=== PATIENT | female | born 1945 | race Caucasian/White ===

== ENCOUNTER → 2017-01-06 | Outpatient (CLI) | payer MEDICARE | END | disposition home or self-care (01) | LOC: LABWHC1 11:20 | PROVIDERS: ATTEND Internal Medicine Endocrinology, Diabetes & Metabolism | DX: E03.8 Other specified hypothyroidism (principal) | CPT/HCPCS: 36415; 84443 ==

== ENCOUNTER → 2017-05-12 | Outpatient (CLI) | payer MEDICARE ==
--- NOTE | 2017-05-13 07:45 | BD ---
EXAMINATION TYPE: MG DEXA axial skeleton. DATE OF EXAM: 05/12/2017 COMPARISON: 04/09/2007 prior DEXA bone scan report. CLINICAL HISTORY: Postmenopausal female Height: 60.7 IN Weight: 217 LBS FRAX RISK QUESTIONS: Alcohol (3 or more units per day): NO Family History (Parent hip fracture): NO Glucocorticoids (More than 3mos): NO (Ex: prednisone, prednisolone, methylprednisolone, dexamethasone, and hydrocortisone). History of Fracture in Adulthood: YES C2 10/2016 Secondary Osteoporosis: 1. Type 1 Diabetes: NO 2. Hyperthyroidism: NO 3. Menopause before 45: YES AGE 36 4. Malnutrition: NO 5. Chronic liver disease: NO Rheumatoid Arthritis: NO Current Tobacco Use: NO RISK FACTORS HISTORY OF: Spine Fracture: C2 When: 10/29 Surgery to Hip(KEN): When: RT 2011 AND LEFT 2015 Active: YES Postmenopausal woman: AGE 36 Lost more than 2 inches in height since high school: YES 5" MEDICATIONS: Thyroid Medications: YES Which medication: Levothyroxine How Lon+ YEARS Additional Medications: CALCIUM, VIT D, LEVOTHYROXINE, BLOOD PRESSURE MEDS, COUMADIN, NORCO Additional History: CHEMO WITH RADIATION 2007 EXAM MEASUREMENTS: Bone mineral densitometry was performed using the Carena System. Bone mineral density as measured about the Lumbar spine is: ----- L1-L4(G/cm2): 1.198 T Score Values are as follows: ----- L2: -1.3 ----- L3: 1.6 ----- L4: 1.0 ----- L1-L4: 0.2 Bone mineral density has: Increased 7.2% since study of: 04/09/2007 PT HAD BILATERAL HIP REPLACEMENTS. IMPRESSION: Osteopenia (T Score between -2.5 and -1 as noted by T score values as noted at 2 consecutive levels i n the upper lumbar spine. There is slightly increased risk of fracture and the patient may be conside red for treatment. Re-Screen 2-5 years. NOTE: T-SCORE=SD OF THE YOUNG ADULT MEAN.
--- NOTE | 2017-05-13 08:46 | MM ---
Reason for exam: additional evaluation requested from prior study. Last mammogram was performed 10 years and 1 month ago. History: Patient is postmenopausal and has history of breast cancer at age 61. Family history of breast cancer in cousin at age 30 and breast cancer in aunt at age 50. Lumpectomy of the right breast, May 25, 2007. Malignant US right core biopsy of the right breast, April 28, 2007. Took antineoplastic for 5 years beginning at age 62. Physical Findings: Nurse did not find any significant physical abnormalities on exam. MG 3D Diag Mammo W/Cad KEN Bilateral CC and MLO view(s) were taken. Prior study comparison: April 15, 2007, workup right diagnostic mammogram. April 09, 2007, bilateral screening mammogram w/CAD. There are scattered fibroglandular densities. Stable benign calcifications. Post lumpectomy and radiation therapy changed in the right breast. No significant new findings when compared with previous films. These results were verbally communicated with the patient and result sheet given to the patient on 05/12/17. ASSESSMENT: Benign, BI-RAD 2 RECOMMENDATION: Follow-up diagnostic mammogram of both breasts in 1 year.
== END | disposition home or self-care (01) ==
LOC: RADMAMWWP 13:36
PROVIDERS: ATTEND Family Medicine
DX: Z08 Encounter for follow-up examination after completed treatment for malignant neoplasm (principal); Z85.3 Personal history of malignant neoplasm of breast; M85.88 Other specified disorders of bone density and structure, other site; Z78.0 Asymptomatic menopausal state
CPT/HCPCS: 77080; G0204; G0279

== ENCOUNTER → 2018-01-02 | Outpatient (CLI) | payer MEDICARE ==
--- NOTE | 2018-01-03 23:22 | MR ---
EXAMINATION TYPE: MR lumbar spine wo con DATE OF EXAM: 01/02/2018 COMPARISON: 10/11/2014 HISTORY: Back pain / DDD TECHNIQUE: Multiplanar, multisequence images of the lumbar spine were acquired. There is 5 mm anterior subluxation of L4 in relation L5. There is narrowing of disc spaces throughout the lumbar spine. There is decreased signal in the L2 vertebral body and the superior posterior aspe ct of L3 vertebral body consistent with edema. There are posterior endplate spurring and small disc h erniation throughout the lumbar spine. There is developmentally adequate canal and no significant bon y spinal stenosis. There is no lumbar paraspinal mass. The posterior elements are intact. There is 5- 10% loss of height of L2 vertebra on the right side. I see no increased disc fluid. I see no evidence of discitis. IMPRESSION: Degenerative first-degree L4-5 spondylolisthesis. Multilevel spondylotic change. There is edema in th e L2 and L3 vertebral bodies that is new compared to old exam and consistent with subacute fractures at L2 and some reactive edema there is stress related in the L3 vertebra.. Multiple small posterior l umbar disc herniations. No significant spinal stenosis.
== END | disposition home or self-care (01) ==
LOC: RADMRIMAIN 10:31
PROVIDERS: ATTEND Family Medicine
DX: M51.26 Other intervertebral disc displacement, lumbar region (principal); M43.16 Spondylolisthesis, lumbar region; M47.816 Spondylosis without myelopathy or radiculopathy, lumbar region
CPT/HCPCS: 72148

== ENCOUNTER → 2018-03-05 | Outpatient (CLI) | payer MEDICARE ==
--- NOTE | 2018-03-05 14:13 | CT ---
EXAMINATION TYPE: CT angio chest DATE OF EXAM: 03/05/2018 COMPARISON: NONE HISTORY: Thoracic aortic aneurysm CT DLP: 572 mGycm. Automated Exposure Control for Dose Reduction was Utilized. CONTRAST: CTA scan of the thorax is performed with IV Contrast, patient injected with 100 mL of Isovue 370, pul monary embolism protocol. Three-D reconstructed images are created on independent workstation and rev iewed.. FINDINGS: Vascular: There is satisfactory enhancement of the pulmonary artery and its branches, there is no CT evidence for acute pulmonary embolism. Ascending aorta measures up to 3.5 cm diameter axial image 24 at level of bifurcation. Inferior to th is there is obliquity present making accurate measurements suboptimal. There is normal three-vessel o rigin from the aortic arch. No significant stenosis is present. There is some tortuous course to visu alized portion of both common carotid arteries. There is mild to moderate mixed plaque in the descend ing thoracic aorta which is slightly ectatic in course. There is patency of celiac axis, SMA, bilater al single renal arteries. There is ectasia with moderate mixed plaque in the infrarenal abdominal aor ta measuring up to 2.5 cm AP diameter axial image 67. No significant stenosis is evident. No linear h ypodensity to suggest aortic dissection is present. LUNGS: The lungs are grossly clear, there is no concerning parenchymal mass or nodule identified. T here is no pleural effusion or pneumothorax seen. The tracheobronchial tree is patent. MEDIASTINUM: There are no greater than 1 cm hilar or mediastinal lymph nodes. No pericardial effusi on is seen. There is cardiomegaly with moderate to severe biatrial dilatation and mild biventricular dilatation. There is severe three-vessel coronary artery calcification and/or stents. OTHER: Cholecystectomy clips are noted. There is some fat replaced atrophy of the pancreas proximal t o mid body. There is moderate to severe multilevel spurring in the visualized spine. There is multile mony vacuum disc phenomenon and disc space narrowing in the visualized lumbar spine. There are surgica l changes from lumpectomy in the right breast. Skin thickening is presumed posttreatment change. IMPRESSION: Ascending aorta measures up to 3.5 cm in diameter. Ectasia of the infrarenal abdominal ao rta without greater than 3 cm aneurysmal change is also noted.
== END | disposition home or self-care (01) ==
LOC: RADCTMAIN 12:59
PROVIDERS: ATTEND Internal Medicine Clinical Cardiac Electrophysiology
DX: I77.811 Abdominal aortic ectasia (principal)
CPT/HCPCS: 71275; Q9967

== ENCOUNTER → 2018-03-05 | Outpatient (CLI) | payer MEDICARE ==
--- NOTE | 2018-03-05 13:14 | MR ---
EXAMINATION TYPE: MR lumbar spine wo/w con DATE OF EXAM: 03/05/2018 12:38 PM COMPARISON: 10/11/2014 HISTORY: Spondylosis With Myelopathy CONTRAST: The patient was injected with 10 mL intravenous Gadavist gadolinium contrast. Multiplanar, MultiSpin echo imaging of the lumbar spine was performed. L1-L2: Severe degenerative disc desiccation with vacuum disc. Moderate circumferential disc bulge wit h effacement ventral thecal sac. No evidence for herniation or central stenosis. Facet joint arthropa thy with mild bilateral foraminal encroachment. L2-L3: Severe degenerative disc desiccation with vacuum disc. Moderate circumferential disc bulge wit h effacement ventral thecal sac. There is evidence of bilateral lateral recess stenosis and mild cent ral stenosis. Facet joint arthropathy with moderate bilateral foraminal encroachment. Facet joint art hropathy with mild bilateral foraminal encroachment. L3-L4: Severe degenerative disc desiccation with vacuum disc. Moderate circumferential disc bulge wit h effacement ventral thecal sac. There is evidence of bilateral lateral recess stenosis and mild cent ral stenosis. Facet joint arthropathy with moderate bilateral foraminal encroachment. Facet joint art hropathy with mild bilateral foraminal encroachment. L4-L5: Severe degenerative disc desiccation with vacuum disc. Moderate circumferential disc bulge wit h effacement ventral thecal sac. Grade 1 anterolisthesis L4 and L5 measuring 5.5 mm. No evidence for central stenosis. Facet joint arthropathy with moderate bilateral foraminal encroachment. Facet joint arthropathy with mild bilateral foraminal encroachment. L5-S1: Severe degenerative disc desiccation with vacuum disc. Mild posterior disc bulge noted. Facet joint arthropathy with moderate bilateral foraminal encroachment. Facet joint arthropathy with mild b ilateral foraminal encroachment. Lumbar segments are intact. Multilevel degenerative endplate marrow change. No paraspinal masses are identified. Conus medullaris has a normal appearance. IMPRESSION: 1. Severe multilevel degenerative disc disease with associated disc bulging and central stenosis at L 2-3 and L3-4 as discussed above.
== END ==
LOC: RADMRIMAIN 11:05
DX: M48.061 Spinal stenosis, lumbar region without neurogenic claudication (principal); M51.37 Other intervertebral disc degeneration, lumbosacral region; M51.26 Other intervertebral disc displacement, lumbar region; M99.73 Connective tissue and disc stenosis of intervertebral foramina of lumbar region; M46.96 Unspecified inflammatory spondylopathy, lumbar region
CPT/HCPCS: 82565; 84520; 72158; A9581

== ENCOUNTER → 2018-05-28 | Outpatient (CLI) | payer MEDICARE ==
--- NOTE | 2018-05-28 14:44 | MM ---
Reason for exam: additional evaluation requested from prior study. Last mammogram was performed 1 year and 1 month ago. History: Patient is postmenopausal and has history of breast cancer at age 61. Family history of breast cancer in cousin at age 30 and breast cancer in aunt at age 50. Lumpectomy of the right breast, May 25, 2007. Malignant US right core biopsy of the right breast, April 28, 2007. Took antineoplastic for 5 years beginning at age 62. Physical Findings: Nurse did not find any significant physical abnormalities on exam. MG 3D Diag Mammo W/Cad KEN Bilateral CC and MLO view(s) were taken. Prior study comparison: May 12, 2017, bilateral MG 3d diag mammo w/cad KEN. April 15, 2007, workup right diagnostic mammogram. There are scattered fibroglandular densities. Finding: There are increased number of heterogeneous, grouped/clustered calcifications in the lower inner quadrant, anterior position of the left breast 9cm from the nipple. Asymmetric breast tissue greaster in the right breast. These results were verbally communicated with the patient and result sheet given to the patient on 05/28/18. ASSESSMENT: Probably benign, BI-RAD 3 RECOMMENDATION: Follow-up diagnostic mammogram of the left breast in 6 months.
== END | disposition home or self-care (01) ==
LOC: RADMAMWWP 13:17
PROVIDERS: ATTEND Family Medicine
DX: Z08 Encounter for follow-up examination after completed treatment for malignant neoplasm (principal); Z85.3 Personal history of malignant neoplasm of breast
CPT/HCPCS: 77066; G0279; 77062

== ENCOUNTER 2018-11-03 16:32 | Inpatient (IN) | payer MEDICARE ==
[2018-11-03] MEDS ORDERED: SODIUM CHLORIDE 0.9% 500 ML 500 ML IV STA (16:57)
[2018-11-03] MEDS ORDERED: ONDANSETRON 4 MG/2 ML VIAL IVP STA (16:57)
[2018-11-03] MEDS ORDERED: SODIUM CHLORIDE 0.9% 1,000 ML IV STA (16:57)
--- NOTE | 2018-11-03 17:01 | ED ---
Chest Pain HPI - General Chief Complaint: Chest Pain Stated Complaint: Chest pain, upper jaw pain Time Seen by Provider: 11/03/18 16:52 Source: patient, RN notes reviewed, old records reviewed Mode of arrival: wheelchair Limitations: no limitations - History of Present Illness Initial Comments: This is a 72-year-old female the ER for evaluation she presents today for evaluation of chest pain and arrhythmia. Patient is current site monitor placed to monitor for arrhythmia A. fib. Patient states she's had chest pain throughout the night with shortness of breath. No diaphoresis no travel history no sick contacts no fever cough or congestion. She has no prior history of cardiac injury [place] or stent Complaint: chest pain -: hour(s) Onset: during rest, during exertion Pain Location: left chest Pain Radiation: back, jaw/teeth Severity: moderate Severity scale (1-10): 5 Quality: aching, heaviness Consistency: constant, intermittent Improves With: nothing Worsens With: nothing Other Symptoms: palpitations Treatments Prior to Arrival: none - Related Data Home Medications Medication Instructions Recorded Confirmed Aspirin EC [Ecotrin] 81 mg PO DAILY 09/18/14 11/03/18 Pravastatin Sodium [Pravachol] 40 mg PO HS 09/18/14 11/03/18 HYDROcodone/APAP 10-325MG [Catherine 1 tab PO TID 11/10/14 11/03/18 10] Hydrochlorothiazide [Hydrodiuril] 25 mg PO DAILY 11/03/18 11/03/18 Levothyroxine Sodium [Synthroid] 137 mcg PO HS 11/03/18 11/03/18 Metoprolol Tartrate [Lopressor] 50 mg PO DAILY 11/03/18 11/03/18 Telmisartan [Micardis] 80 mg PO DAILY 11/03/18 11/03/18 Warfarin [Coumadin] 5 mg PO SUTUWEFRSA 11/03/18 11/03/18 Warfarin [Coumadin] 7.5 mg PO MOTH 11/03/18 11/03/18 Allergies Allergy/AdvReac Type Severity Reaction Status Date / Time meperidine HCl [From Demerol] AdvReac Unknown Blood Verified 11/03/18 18:30 pressure dropped Review of Systems ROS Statement: Those systems with pertinent positive or pertinent negative responses have been documented in the HPI. ROS Other: All systems not noted in ROS Statement are negative. EKG Findings - EKG Comments: EKG Findings:: EKG shows A. fib rate of 75, QRS 84, QTC 419 Past Medical History Past Medical History: Atrial Fibrillation, Cancer, GERD/Reflux, Hyperlipidemia, Hypertension, Osteoarthritis (OA), Thyroid Disorder Additional Past Medical History / Comment(s): HX OF RT BREAST CANCER WITH RADIATION 2007., BACK AND HIP PAIN. History of Any Multi-Drug Resistant Organisms: MRSA Date of last positivie culture/infection: 1997 MDRO Source:: RT BUNIONECTOMY Past Surgical History: Back Surgery, Cholecystectomy, Joint Replacement Additional Past Surgical History / Comment(s): 2002 CERVICAL FUSION, LT CARPAL TUNNEL, RT HIP REPLACEMENT, KEN KNEE REPLACEMENT, KEN BUNIONECTOMY, 2006 RT BREAST LUMPECTOMY. Past Anesthesia/Blood Transfusion Reactions: No Reported Reaction Past Psychological History: No Psychological Hx Reported Smoking Status: Never smoker General Exam Limitations: no limitations General appearance: alert, in no apparent distress, anxious Head exam: Present: atraumatic, normocephalic, normal inspection Eye exam: Present: normal appearance, PERRL, EOMI. Absent: scleral icterus, conjunctival injection, periorbital swelling ENT exam: Present: normal exam, mucous membranes moist Neck exam: Present: normal inspection. Absent: tenderness, meningismus, lymphadenopathy Respiratory exam: Present: normal lung sounds bilaterally. Absent: respiratory distress, wheezes, rales, rhonchi, stridor Cardiovascular Exam: Present: regular rate, normal rhythm, normal heart sounds. Absent: systolic murmur, diastolic murmur, rubs, gallop, clicks GI/Abdominal exam: Present: soft, normal bowel sounds. Absent: distended, tenderness, guarding, rebound, rigid Extremities exam: Present: normal inspection, full ROM, normal capillary refill. Absent: tenderness, pedal edema, joint swelling, calf tenderness Back exam: Present: normal inspection Neurological exam: Present: alert, oriented X3, CN II-XII intact Psychiatric exam: Present: normal affect, normal mood Skin exam: Present: warm, dry, intact, normal color. Absent: rash Course Vital Signs 11/03/18 11/03/18 11/03/18 16:41 17:29 17:30 Temperature 98.1 F Pulse Rate 87 72 76 Respiratory 16 16 Rate Blood Pressure 109/73 O2 Sat by Pulse 97 Oximetry 11/03/18 11/03/18 18:00 18:30 Temperature Pulse Rate 87 Respiratory 19 Rate Blood Pressure 122/80 O2 Sat by Pulse 100 Oximetry - Reevaluation(s) Reevaluation #1: 11/03/18 18:48 Medical record reviewed, patient has current site monitor Reevaluation #2: 11/03/18 18:48 Patient states she has history of A. fib on Coumadin Reevaluation #3: 11/03/18 18:48 Patient continues to chest pain Chest Pain MDM - MDM 72 female the ER for evaluation, chest pain and arrhythmia. Will not for cardiology observation rehydration and continue monitoring and telemetry Disposition Clinical Impression: Chest pain, Atrial fibrillation, Hyponatremia Disposition: ADMITTED IP TO THIS HOSP Condition: Undetermined Instructions (If sedation given, give patient instructions): Chest Pain (ED) Is patient prescribed a controlled substance at d/c from ED?: No Referrals: Je Santana MD [Primary Care Provider] - 1-2 days
[2018-11-03 18:09] LABS: Basophils % (A) 0 %; Eosinophils # (A) 0.1 k/uL (0-0.7); Eosinophils % (A) 1 %; HCT 40.9 % (34.0-46.0); HGB 13.3 gm/dL (11.4-16.0); Lymphocytes # (A) 0.6 k/uL (1.0-4.8); Lymphocytes % (A) 6 %; MCH 29.2 pg (25.0-35.0); MCHC 32.6 g/dL (31.0-37.0); MCV 89.7 fL (80.0-100.0); Mean Platelet Volume 6.9; Monocytes # (A) 0.5 k/uL (0-1.0); Monocytes % (A) 4 %; Neutrophils # (A) 8.8 k/uL (1.3-7.7); Neutrophils % (A) 87 %; Platelet Count 219 k/uL (150-450); RBC 4.56 m/uL (3.80-5.40); RDW 13.5 % (11.5-15.5); WBC 10.1 k/uL (3.8-10.6)
[2018-11-03 18:13] LABS: Albumin 4.2 g/dL (3.5-5.0); Calcium 9.9 mg/dL (8.4-10.2); Magnesium 1.4 mg/dL (1.6-2.3); Potassium 3.9 mmol/L (3.5-5.1); Total Protein 6.9 g/dL (6.3-8.2)
[2018-11-03 18:21] LABS: D-Dimer 0.45 mg/L FEU (<0.60); INR 2.3 (<1.2)
[2018-11-03 18:22] LABS: Partial Thromboplastin Time 27.7 sec (22.0-30.0)
[2018-11-03] MEDS ORDERED: ACETAMINOPHEN TAB 325 MG TAB PO STA (18:29)
--- NOTE | 2018-11-03 18:32 | XR ---
EXAMINATION TYPE: XR chest 2V DATE OF EXAM: 11/03/2018 COMPARISON: 09/15/2014 HISTORY: Chest pain TECHNIQUE: Frontal and lateral views of the chest are obtained. FINDINGS: There is no heart failure nor confluent pneumonic infiltrate. There is coarsening of the l bob markings. There are chest leads. Thoracic aorta is atheromatous. IMPRESSION: Mild pulmonary fibrosis. No heart failure. Lung markings increased compared to old exam.
[2018-11-03] MEDS ORDERED: NITROGLYCERIN SL TABS 0.4 MG TAB SUBLINGUAL PRN (18:46)
[2018-11-03] MEDS: SODIUM CHLORIDE 0.9% 1,000 ML IV SCH (19:45)
[2018-11-03] MEDS ORDERED: METOPROLOL TARTRATE 25 MG TAB PO SCH (21:00)
[2018-11-03 22:53] VITALS: BMI 37.8
[2018-11-03] MEDS ORDERED: Magnesium Replacement Protocol 1 EACH MISC MISCELLANE PRN (23:02)
[2018-11-03] MEDS: HYDROcodone/APAP 10-325MG 1 EACH TAB PO SCH (23:29)
[2018-11-03] MEDS: MAGNESIUM SULFATE-D5W PMX 1 GM in DEXTROSE/WATER 1 100ML.BAG IVPB SCH (23:30)
[2018-11-03] MEDS ORDERED: WARFARIN 5 MG TAB PO ONE (23:30)
[2018-11-03] MEDS: LOSARTAN 50 MG TAB PO SCH (23:30)
[2018-11-04] MEDS: MAGNESIUM SULFATE-D5W PMX 1 GM in DEXTROSE/WATER 1 100ML.BAG IVPB SCH ×2 (00:48→02:27)
[2018-11-04] MEDS: MORPHINE SULFATE 2 MG/ML SYRINGE IVP PRN ×3 (02:26→22:38)
[2018-11-04 06:04] LABS: Basophils % (A) 0 %; Eosinophils # (A) 0.1 k/uL (0-0.7); Eosinophils % (A) 1 %; HCT 37.7 % (34.0-46.0); HGB 12.5 gm/dL (11.4-16.0); Lymphocytes % (A) 14 %; MCH 29.8 pg (25.0-35.0); MCHC 33.1 g/dL (31.0-37.0); MCV 89.8 fL (80.0-100.0); Monocytes # (A) 0.6 k/uL (0-1.0); Monocytes % (A) 9 %; Neutrophils % (A) 74 %; Platelet Count 213 k/uL (150-450); RDW 13.4 % (11.5-15.5); WBC 6.8 k/uL (3.8-10.6)
[2018-11-04 06:13] LABS: Albumin 3.6 g/dL (3.5-5.0); Calcium 9.3 mg/dL (8.4-10.2); Magnesium 2.4 mg/dL (1.6-2.3); Total Bilirubin 1.6 mg/dL (0.2-1.3); Total Protein 6.1 g/dL (6.3-8.2)
[2018-11-04] MEDS: SODIUM CHLORIDE 0.9% 1,000 ML IV SCH (06:19)
[2018-11-04 07:16] LABS: INR 1.7 (<1.2); Prothrombin Time 16.8 sec (9.0-12.0)
[2018-11-04] MEDS ORDERED: CAFFEINE CITRATE 60 MG/3 ML VIAL IV PRN (08:18)
[2018-11-04] MEDS ORDERED: AMINOPHYLLINE 500 MG/20 ML VIAL IV PRN (08:18)
--- NOTE | 2018-11-04 08:21 | P.CRDCN ---
History of Present Illness Consult date: 11/04/18 Requesting physician: Octavio Nieves Consult reason: chest pain Chief complaint: Chest pain History of present illness: This is a pleasant 72-year-old female who follows with Dr. Calin beatty the office, she has a known history of persistent atrial fibrillation, hypertension, hyperlipidemia, nondiabetic, nonsmoker, no documented coronary artery disease in the past, history of hypothyroidism. 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 She walked out to her car put her groceries in the car, called the physician's office and was directed to come here for admission. Has not had any prior cardiac catheterization but she does state that she had a stress test several years ago. She also has significant issues with her neck and spine for which she has had cervical fusion performed in the past. Chest x-ray showed mild pulmonary fibrosis. EKG on presentation here showed atrial fibrillation with a controlled ventricular response. No acute changes noted. I pressure on arrival here 110/70 with a heart rate in the 80s, 97% on room air. Weight blood cell count 6.8, hemoglobin 12.5, platelet count 213. Pro time on admission 22 with an INR of 2.3, INR this morning 1.7, d-dimer 0.45. Sodium 123, potassium 4.0, BUN 19 and creatinine 0.8. NEC and 1.4 on admission, 2.4 this morning. Troponins are negative 3. Total bilirubin 1.6, BNP level 1710. At the time of my examination this morning, patient continues to have chest discomfort, significantly worse when she takes a deep breath. Her breathing is overall stable, denies any diaphoresis, no dizziness or lightheadedness. Past Medical History Past Medical History: Atrial Fibrillation, Cancer, GERD/Reflux, Hyperlipidemia, Hypertension, Osteoarthritis (OA), Thyroid Disorder Additional Past Medical History / Comment(s): HX OF RT BREAST CANCER WITH RADIATION 2007., BACK AND HIP PAIN. History of Any Multi-Drug Resistant Organisms: MRSA Date of last positivie culture/infection: 1997 MDRO Source:: RT BUNIONECTOMY Past Surgical History: Back Surgery, Cholecystectomy, Joint Replacement Additional Past Surgical History / Comment(s): 2002 CERVICAL FUSION, LT CARPAL TUNNEL, RT HIP REPLACEMENT, KEN KNEE REPLACEMENT, KEN BUNIONECTOMY, 2006 RT BREAST LUMPECTOMY. Past Anesthesia/Blood Transfusion Reactions: No Reported Reaction Past Psychological History: No Psychological Hx Reported Smoking Status: Never smoker - Past Family History Mother Family Medical History: Hyperlipidemia, Hypertension, Myocardial Infarction ([place]) Father Additional Family Medical History / Comment(s): aneruysm Medications and Allergies Home Medications Medication Instructions Recorded Confirmed Type Aspirin EC [Ecotrin] 81 mg PO DAILY 09/18/14 11/03/18 History Pravastatin Sodium [Pravachol] 40 mg PO HS 09/18/14 11/03/18 History HYDROcodone/APAP 10-325MG [[place] 1 tab PO TID 11/10/14 11/03/18 History 10] Hydrochlorothiazide [Hydrodiuril] 25 mg PO DAILY 11/03/18 11/03/18 History Levothyroxine Sodium [Synthroid] 137 mcg PO HS 11/03/18 11/03/18 History Metoprolol Tartrate [Lopressor] 50 mg PO DAILY 11/03/18 11/03/18 History Telmisartan [Micardis] 80 mg PO DAILY 11/03/18 11/03/18 History Warfarin [Coumadin] 5 mg PO SUTUWEFRSA 11/03/18 11/03/18 History Warfarin [Coumadin] 7.5 mg PO MOTH 11/03/18 11/03/18 History Allergies Allergy/AdvReac Type Severity Reaction Status Date / Time meperidine HCl [From Demerol] AdvReac Unknown Blood Verified 11/03/18 18:30 pressure dropped Physical Exam Vitals: Vital Signs Temp Pulse Pulse Resp BP BP Pulse Ox 11/04/18 04:58 97.7 F 87 18 102/70 97 11/03/18 22:45 97.9 F 86 18 149/79 98 11/03/18 22:42 97.8 F 86 16 149/79 98 11/03/18 21:30 98.7 F 87 19 126/84 96 11/03/18 21:00 89 23 124/83 96 11/03/18 20:30 83 21 125/84 96 11/03/18 20:00 82 17 162/86 97 05/22/19 19:30 87 19 122/105 98 11/03/18 19:00 80 14 125/93 11/03/18 18:30 87 19 11/03/18 18:00 122/80 100 11/03/18 17:30 76 16 11/03/18 17:29 72 11/03/18 16:41 98.1 F 87 16 109/73 97 Intake and Output 11/03/18 11/04/18 11/04/18 22:59 06:59 14:59 Intake Total 300 Balance 300 Intake: Intake, IV Titration 300 Amount Magnesium Sulfate-D5w Pmx 300 1 gm In Dextrose/Water 1 100ml.bag @ 100 mls/hr IVPB Q1H [facility] Rx#: [id number] Other: Voiding Method Toilet # Voids 1 Weight 90.718 kg 87.7 kg PHYSICAL EXAMINATION: GENERAL: 72-year-old female in no acute distress at the time of my examination HEENT: Head is atraumatic, normocephalic. Pupils equal, round. Sclera anicteric. Conjunctiva are clear. Mucous membranes of the mouth are moist. Neck is supple. There is no elevated jugular venous pressure. No carotid bruit is heard. HEART EXAMINATION: Heart S1 and S2 irregularly irregular a systolic murmur is heard CHEST EXAMINATION: Lungs are clear with fine crackles to bilateral bases. Positive chest wall pain with inspiration ABDOMEN: [ Soft, obese, nontender. Bowel sounds are heard. No organomegaly noted]. EXTREMITIES:[ 2+ peripheral pulses with trace evidence of peripheral edema and no calf tenderness noted]. NEUROLOGIC [patient is awake, alert and oriented 3 ] . Results 11/04/18 05:24 11/04/18 05:24 Cardiac Enzymes 11/03/18 11/03/18 11/03/18 Range/Units 17:35 17:35 23:19 AST 32 (14-36) U/L Troponin I <0.012 <0.012 (0.000-0.034) ng/mL 11/04/18 11/04/18 Range/Units 05:24 05:24 AST 29 (14-36) U/L Troponin I <0.012 (0.000-0.034) ng/mL Coagulation 11/03/18 11/04/18 Range/Units 17:35 05:24 PT 22.0 H 16.8 H (9.0-12.0) sec APTT 27.7 (22.0-30.0) sec Lipids 11/04/18 Range/Units 05:24 Triglycerides 64 (<150) mg/dL Cholesterol 130 (<200) mg/dL HDL Cholesterol 49 (40-60) mg/dL CBC 11/03/18 11/04/18 Range/Units 17:35 05:24 WBC 10.1 6.8 (3.8-10.6) k/uL RBC 4.56 4.20 (3.80-5.40) m/uL Hgb 13.3 12.5 (11.4-16.0) gm/dL Hct 40.9 37.7 (34.0-46.0) % Plt Count 219 213 (150-450) k/uL Comprehensive Metabolic Panel 11/03/18 11/04/18 Range/Units 17:35 05:24 Sodium 125 L 123 L (137-145) mmol/L Potassium 3.9 4.0 (3.5-5.1) mmol/L Chloride 90 L 89 L (98-107) mmol/L Carbon Dioxide 26 26 (22-30) mmol/L BUN 20 H 19 H (7-17) mg/dL Creatinine 0.85 0.86 (0.52-1.04) mg/dL Glucose 104 H 95 (74-99) mg/dL Calcium 9.9 9.3 (8.4-10.2) mg/dL AST 32 29 (14-36) U/L ALT 25 23 (9-52) U/L Alkaline Phosphatase 68 56 (38-126) U/L Total Protein 6.9 6.1 L (6.3-8.2) g/dL Albumin 4.2 3.6 (3.5-5.0) g/dL Current Medications Generic Name Dose Route Start Last Admin Trade Name Freq PRN Reason Stop Dose Admin Hydrocodone Bitart/Acetaminophen 1 each 11/03/18 23:30 11/03/18 23:29 [place] 10 PO 1 each TID LIBBY Administration Aspirin 325 mg 11/04/18 09:00 Aspirin PO DAILY LIBBY Famotidine 20 mg 11/04/18 09:00 Pepcid PO DAILY LIBBY Sodium Chloride 1,000 mls @ 100 mls/hr 11/03/18 19:00 11/04/18 06:19 Saline 0.9% IV 100 mls/hr .Q10H LIBBY Administration Levothyroxine Sodium 137 mcg 11/04/18 21:00 Synthroid PO HS [facility] Losartan Potassium 150 mg 11/03/18 23:30 11/03/18 23:30 Cozaar PO 150 mg DAILY LIBBY Administration Metoprolol Tartrate 50 mg 11/04/18 09:00 Lopressor PO DAILY [facility] Miscellaneous Information 1 each 11/03/18 23:02 Magnesium Per Protocol MISCELLANE DAILY PRN Per Protocol Protocol Morphine Sulfate 1 - 2 mg 11/03/18 23:02 11/04/18 02:26 Morphine Sulfate (Inj) IVP 1 mg Q4H PRN Administration Pain/Discomfort Nitroglycerin 0.4 mg 11/03/18 18:46 11/03/18 22:30 Nitrostat SUBLINGUAL 0.4 mg Q5M PRN Administration Chest Pain Pravastatin Sodium 40 mg 11/04/18 21:00 Pravachol PO HS [facility] Warfarin Sodium 5 mg 11/05/18 18:00 Coumadin PO [id number] [facility] Warfarin Sodium 7.5 mg 11/04/18 18:00 Coumadin PO [id number]@1800 [facility] Intake and Output 11/03/18 11/04/18 11/04/18 22:59 06:59 14:59 Intake Total 300 Balance 300 Intake: Intake, IV Titration 300 Amount Magnesium Sulfate-D5w Pmx 300 1 gm In Dextrose/Water 1 100ml.bag @ 100 mls/hr IVPB Q1H [facility] Rx#: [id number] Other: Voiding Method Toilet # Voids 1 Weight 90.718 kg 87.7 kg 11/04/18 05:24 11/04/18 05:24 EKG Interpretations (text) EKG shows atrial fibrillation with a controlled ventricular response Assessment and Plan Plan: Assessment and plan #1 chest pain, with atypical features for acute coronary syndrome. Troponins negative 3. EKG shows atrial fibrillation with no acute changes. #2 chronic persistent atrial fibrillation, on Coumadin for anticoagulation #3 hypertension #4 hyperlipidemia #5 hypomagnesemia, replaced #6 hyponatremia #7 elevated BNP level with no evidence of acute heart failure #8 cervical and spine issues for which the patient has undergone a cervical fusion in the past #9 hypothyroidism Plan We will obtain an echocardiogram with Doppler study. Would also recommend patient undergo Persantine stress test today. Decrease aspirin to 81 mg daily, patient has no prior documented history of coronary artery disease, her stress test is normal we may discontinue the aspirin. Continue Cozaar, metoprolol, pravastatin. Further recommendations will be based on these findings and the patient's clinical course. DNP note has been reviewed, I agree with a documented findings and plan of care. Patient was seen and examined.
[2018-11-04] MEDS ORDERED: DIPYRIDAMOLE 50 MG in SODIUM CHLORIDE 0.9% 40 ML IV ONE (08:30)
[2018-11-04] MEDS ORDERED: HYDROcodone/APAP 10-325MG 1 EACH TAB PO SCH (09:00)
[2018-11-04] MEDS ORDERED: LOSARTAN 50 MG TAB PO SCH (09:00)
[2018-11-04] MEDS ORDERED: NON-FORMULARY DRUG (Aspirin Ec 81 MG) PO SCH (09:00)
[2018-11-04] MEDS ORDERED: RX INFO: IV CONTRAST WAS GIVEN 1 EACH MISC MISCELLANE PRN (10:31)
--- NOTE | 2018-11-04 10:31 | P.HPIM ---
History of Present Illness H&P Date: 11/03/18 Chief Complaint: Pain, severe hypoxia, severe hyponatremia, history of breast cancer, A. fib 72-year-old female one of Dr. 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 fib seen Dr. Lara on regular basis has been on warfarin and beta liban and doing well. Patient was at a civil engineering intern office today and place on conveyor monitor for 24 hours. Went to the shopping center and a blood to have significant tightness and pressure in the midsternal area radiating toward both shoulder and jaw was associated with significant shortness of breath mild palpitation mild lightheadedness without syncope had nausea with no vomiting patient symptom or much worse ended up coming back to the civil engineering intern office and complain about a current problem was instructed to go to the [facility]. She was seen and evaluated at [facility] emergency EKG did not show major tachycardia the time still in A. fib no ST elevation or abnormality, CK with troponin was negative with her current symptoms patient will be hospitalized for atypical angina. Her d-dimer was negative no CTA was done at the time but patient was very hypoxic in the ER also was very hyponatremic with hypomagnesemia as well. Was started on fluid restriction and magnesium replacement therapy and hospitalized. Review of Systems CONSTITUTIONAL: Well-developed no acute respiratory distress. EYES: No icterus sclerae, no conjunctivitis. EARS, NOSE, MOUTH, THROAT, and FACE: No sore throat, lymphadenopathy, carotid bruits or deformity. RESPIRATORY: Mild shortness of breath no cough or wheezes. CARDIOVASCULAR: Positive chest pain with palpitation PND orthopnea, and angina GASTROINTESTINAL: No Abd pain, Nausea or vomiting, no Diarrhea or constipation, No GI Bleed, no distention or masses. GENITOURINARY: Negative for Hematuria or UTI, no kidney stones. INTEGUMENT/BREAST: Negative for any muscular injury with mild osteoarthritis.. HEMATOLOGIC/LYMPHATIC: Negative for bleed or purpura. MUSCULOSKELTAL: Negative for Myalgia or arthralgia. NEURLOGICAL: No LOC, Sz or syncope, blurred vision dizziness or abnormality.. BEHAVIORAL/PSYCH: Negative. ENDOCRINE: Negative. Past Medical History Past Medical History: Atrial Fibrillation, Cancer, GERD/Reflux, Hyperlipidemia, Hypertension, Osteoarthritis (OA), Thyroid Disorder Additional Past Medical History / Comment(s): HX OF RT BREAST CANCER WITH RADIATION 2007., BACK AND HIP PAIN. History of Any Multi-Drug Resistant Organisms: MRSA Date of last positivie culture/infection: 1997 MDRO Source:: RT BUNIONECTOMY Past Surgical History: Back Surgery, Cholecystectomy, Joint Replacement Additional Past Surgical History / Comment(s): 2002 CERVICAL FUSION, LT CARPAL TUNNEL, RT HIP REPLACEMENT, KEN KNEE REPLACEMENT, KEN BUNIONECTOMY, 2006 RT BREAST LUMPECTOMY. Past Anesthesia/Blood Transfusion Reactions: No Reported Reaction Past Psychological History: No Psychological Hx Reported Smoking Status: Never smoker Additional Past Alcohol Use History / Comment(s): No illicit drug use. No alcohol abuse. Patient lives at home with her . Patieant worked in alf setting. - Past Family History Mother Family Medical History: Hyperlipidemia, Hypertension, Myocardial Infarction ([place]) Additional Family Medical History / Comment(s): Mother at age 59 from a myocardial infarction. Patient had history of 2 previous MIs. Father Additional Family Medical History / Comment(s): Father at age 76 from a ruptured aortic aneurysm. Sister(s) Additional Family Medical History / Comment(s): Patient has one sister with atrial fibrillation. Children have no major medical problems. Medications and Allergies Home Medications Medication Instructions Recorded Confirmed Type Aspirin EC [Ecotrin] 81 mg PO DAILY 09/18/14 11/03/18 History Pravastatin Sodium [Pravachol] 40 mg PO HS 09/18/14 11/03/18 History HYDROcodone/APAP 10-325MG [[place] 1 tab PO TID 11/10/14 11/03/18 History 10] Hydrochlorothiazide [Hydrodiuril] 25 mg PO DAILY 11/03/18 11/03/18 History Levothyroxine Sodium [Synthroid] 137 mcg PO HS 11/03/18 11/03/18 History Metoprolol Tartrate [Lopressor] 50 mg PO DAILY 11/03/18 11/03/18 History Telmisartan [Micardis] 80 mg PO DAILY 11/03/18 11/03/18 History Warfarin [Coumadin] 5 mg PO SUTUWEFRSA 11/03/18 11/03/18 History Warfarin [Coumadin] 7.5 mg PO MOTH 11/03/18 11/03/18 History Allergies Allergy/AdvReac Type Severity Reaction Status Date / Time meperidine HCl [From Demerol] AdvReac Unknown Blood Verified 11/03/18 18:30 pressure dropped Physical Exam Vitals: Vital Signs Temp Pulse Resp BP Pulse Ox 11/03/18 21:30 98.7 F 87 19 126/84 96 11/03/18 21:00 89 23 124/83 96 11/03/18 20:30 83 21 125/84 96 11/03/18 20:00 82 17 162/86 97 11/03/18 19:30 87 19 122/105 98 11/03/18 19:00 80 14 125/93 11/03/18 18:30 87 19 11/03/18 18:00 122/80 100 11/03/18 17:30 76 16 11/03/18 17:29 72 11/03/18 16:41 98.1 F 87 16 109/73 97 Intake and Output 11/03/18 11/03/18 11/03/18 06:59 14:59 22:59 Other: Weight 90.718 kg General Appearance: Alert, cooperative, no distress, appears stated age. Neck HEENT: Supple, no lymphadenopathy, no thyroid enlargement, no carotid bruits. Lungs: Decreased breath some bilaterally with fine rhonchi no crackles or wheezes. Chest Wall: Decrease expansion with deep inspiration no tenderness and no deformity was found on exam, no costochondral pain or discomfort. Heart: Irregular rate and rhythm, S1, S2 positive history no JVD, no murmur, rub or gallop. Back: Symmetric, no curvature, ROM normal, no CVA tenderness. Abdomen: Soft, non-tender, bowel sounds active all four quadrants, no masses, no organomegaly. Extremities: Extremities normal, atraumatic, no cyanosis or edema. Severe arthritis in both knees. Pulses: 2+ and symmetric. Skin: Skin color, texture, tugor normal, no rashes or lesions. Neurologic: Alert oriented x3 cranial nerves II through XII intact, no motor deficit, no abnormal balance or gait. Results CBC & Chem 7: 11/04/18 05:24 11/04/18 05:24 Labs: Abnormal Lab Results - Last 24 Hours (Table) 11/03/18 11/03/18 11/03/18 Range/Units 17:35 17:35 17:35 Neutrophils # 8.8 H (1.3-7.7) k/uL Lymphocytes # 0.6 L (1.0-4.8) k/uL PT 22.0 H (9.0-12.0) sec INR 2.3 H (<1.2) Sodium 125 L (137-145) mmol/L Chloride 90 L (98-107) mmol/L BUN 20 H (7-17) mg/dL Glucose 104 H (74-99) mg/dL Magnesium 1.4 L (1.6-2.3) mg/dL Thrombosis Risk Factor Assmnt - DVT/VTE Prophylaxis DVT/VTE Prophylaxis: Pharmacologic Prophylaxis ordered, Mechanical Prophylaxis ordered Assessment and Plan Plan: 1 unstable angina: Patient was hospitalized with her typical story patient will be kept nothing by mouth to seeing cardiology in the morning CK with troponin will be done continue conveyor monitor continue beta liban if elevated troponin she need heart cath otherwise she would have an echo and stress test. 2 A. fib with RVR: Pulse rate has been under control lately remain on metoprolol 50 mg daily still on warfarin 5 mg alternate 7.5 mg with therapeutic INR so far. 3 severe hypoxia: Leg in her chest x-ray looks like mild pulmonary fibrosis is not a clear whether that's from radiation pneumonitis from her breast cancer or something in you ongoing still might order CT of the chest to exclude any other possibility patient might benefit from seen pulmonary as well. 4 severe hyponatremia: Most likely SIADH, according to her had recent lab with Dr. Santana result were normal with a sodium being 125 quite bit low at the time not a clear whether it's related to occult pneumonia, infection or just polydipsia with SIADH, we'll consult nephrology patient will be on fluid restriction and either demeclocycline and and bicarbonate can be use. 5 hypothyroidism: Continue patient on levothyroxine 137 g daily. 6 hypomagnesemia: With no abnormality on EKG so far patient will have magnesium protocol for correction repeat magnesium level in 24 hours. 7 hypertension: Has been on myocardial this 80 mg daily and metoprolol 50 mg daily we will stop hydrate diarrheal completely as can be the reason for the hyponatremia. 8 GI prophylaxis: Patient will be on Pepcid 20 mg daily. 9 DVT prophylaxis: Patient still on anticoagulation currently. CODE STATUS: Full code. Admit patient to inpatient status for more than 2 nights.
[2018-11-04] MEDS ORDERED: AMINOPHYLLINE 250 MG/10 ML VIAL IV ONE (10:40)
[2018-11-04] MEDS ORDERED: FUROSEMIDE 20 MG TAB PO STA (11:28)
--- NOTE | 2018-11-04 11:29 | P.NPCON ---
History of Present Illness - Reason for Consult hyponatremia - History of Present Illness Reason for consultation: Hyponatremia History of present illness: Patient is a 72-year-old female seen in renal consultation for hyponatremia. Patient's sodium level was 125 on admission and is 123 this morning. She is currently receiving normal saline at 100 mL an hour. Patient was maintained on hydrochlorothiazide as an outpatient. Patient presented to the hospital with chest pain with radiation to her jaw. She also has history of neck surgery in the past and complains of pain in her neck. She has been voiding. No hematuria or dysuria. She has history of breast cancer and is status post lumpectomy 7 years ago. She does admit to drinking quite a bit of water to keep himself hydrated. Her appetite has been fair. No vomiting or diarrhea. She is currently undergoing a stress test. Patient has history of atrial fibrillation and is maintained on anticoagulation. Heart rate is controlled. Hem odynamically stable. Vital signs are stable. General: The patient appeared well nourished and normally developed. HEENT: Head exam is unremarkable. Neck is without jugular venous distension. LUNGS: Lungs are clear to auscultation and percussion. Breath sounds decreased. HEART: Rate and Rhythm are regular. First and second heart sounds normal. No murmurs, rubs or gallops. ABDOMEN: Abdominal exam reveals normal bowel sounds. Non-tender and non- distended. No evidence of peritonitis. EXTREMITITES: No clubbing, cyanosis, or edema. Past Medical History Past Medical History: Atrial Fibrillation, Cancer, GERD/Reflux, Hyperlipidemia, Hypertension, Osteoarthritis (OA), Thyroid Disorder Additional Past Medical History / Comment(s): HX OF RT BREAST CANCER WITH RADIATION 2007., BACK AND HIP PAIN. History of Any Multi-Drug Resistant Organisms: MRSA Date of last positivie culture/infection: 1997 MDRO Source:: RT BUNIONECTOMY Past Surgical History: Back Surgery, Cholecystectomy, Joint Replacement Additional Past Surgical History / Comment(s): 2003 CERVICAL FUSION, LT CARPAL TUNNEL, RT HIP REPLACEMENT, KEN KNEE REPLACEMENT, KEN BUNIONECTOMY, 2007 RT BREAST LUMPECTOMY. Past Anesthesia/Blood Transfusion Reactions: No Reported Reaction Past Psychological History: No Psychological Hx Reported Smoking Status: Never smoker Additional Past Alcohol Use History / Comment(s): No illicit drug use. No alcohol abuse. Patient lives at home with her . Patieant worked in snf setting. - Past Family History Mother Family Medical History: Hyperlipidemia, Hypertension, Myocardial Infarction ([place]) Additional Family Medical History / Comment(s): Mother at age 59 from a myocardial infarction. Patient had history of 2 previous MIs. Father Additional Family Medical History / Comment(s): Father at age 76 from a ruptured aortic aneurysm. Sister(s) Additional Family Medical History / Comment(s): Patient has one sister with atrial fibrillation. Children have no major medical problems. Medications and Allergies Home Medications Medication Instructions Recorded Confirmed Type Aspirin EC [Ecotrin] 81 mg PO DAILY 09/18/14 11/03/18 History Pravastatin Sodium [Pravachol] 40 mg PO HS 09/18/14 11/03/18 History HYDROcodone/APAP 10-325MG [[place] 1 tab PO TID 11/10/14 11/03/18 History 10] Hydrochlorothiazide [Hydrodiuril] 25 mg PO DAILY 11/03/18 11/03/18 History Levothyroxine Sodium [Synthroid] 137 mcg PO HS 11/03/18 11/03/18 History Metoprolol Tartrate [Lopressor] 50 mg PO DAILY 11/03/18 11/03/18 History Telmisartan [Micardis] 80 mg PO DAILY 11/03/18 11/03/18 History Warfarin [Coumadin] 5 mg PO SUTUWEFRSA 11/03/18 11/03/18 History Warfarin [Coumadin] 7.5 mg PO MOTH 11/03/18 11/03/18 History Allergies Allergy/AdvReac Type Severity Reaction Status Date / Time meperidine HCl [From Demerol] AdvReac Unknown Blood Verified 11/03/18 18:30 pressure dropped Physical Exam Vitals: Vital Signs Temp Pulse Pulse Resp BP BP Pulse Ox 11/04/18 04:58 97.7 F 87 18 102/70 97 11/03/18 22:45 97.9 F 86 18 149/79 98 11/03/18 22:42 97.8 F 86 16 149/79 98 11/03/18 21:30 98.7 F 87 19 126/84 96 11/03/18 21:00 89 23 124/83 96 11/03/18 20:30 83 21 125/84 96 11/03/18 20:00 82 17 162/86 97 11/03/18 19:30 87 19 122/105 98 11/03/18 19:00 80 14 125/93 11/03/18 18:30 87 19 11/03/18 18:00 122/80 100 11/03/18 17:30 76 16 11/03/18 17:29 72 11/03/18 16:41 98.1 F 87 16 109/73 97 Intake and Output 11/03/18 11/04/18 11/04/18 22:59 06:59 14:59 Intake Total 300 Balance 300 Intake: Intake, IV Titration 300 Amount Magnesium Sulfate-D5w Pmx 300 1 gm In Dextrose/Water 1 100ml.bag @ 100 mls/hr IVPB Q1H [facility] Rx#: [id number] Other: Voiding Method Toilet # Voids 1 Weight 90.718 kg 87.7 kg Results - Lab Results Most recent lab results Calcium 9.3 mg/dL (8.4-10.2) 11/04/18 05:24 Magnesium 2.4 mg/dL (1.6-2.3) H 11/04/18 05:24 11/04/18 05:24 11/04/18 05:24 Assessment and Plan Plan: Assessment: 1. Hyponatremia. Patient currently appears euvolemic. Etiology is poor solute intake and use of hydrocodone thiazide. Sodium level CXXIII today. Patient did receive normal saline overnight and sodium level dropped further. 2. Benign hypertension. Controlled. 3. Hypomagnesemia secondary to diuretics. Better. 4. History of A. fib. Maintained on Lopressor and Coumadin. 5. Chest pain. Cardiology following. Currently undergoing stress test. Plan: Hep-Lock IV fluids. Avoid thiazide diuretics. 1200 mL fluid restriction. Encouraged solute intake. Add ensure 3 times daily. Lasix 20 mg orally once now. Repeat sodium level this evening. Thank you for the consultation. I will continue to follow the patient with you during her hospital stay.
--- NOTE | 2018-11-04 11:54 | EST ---
EXERCISE STRESS DATE OF SERVICE: 11/04/2018 AGE: 72 SEX: Female HT: 5' WT: 193 pounds PROTOCOL: Persantine Cardiolite STAGE: DURATION OF EXERCISE: HEART RATE REST: 85 BLOOD PRESSURE REST: 103/73 MAXIMUM HEART RATE ACHIEVED: 93 MAXIMUM BLOOD PRESSURE: 136/58 85% MPHR: 124 100% MPHR: 146 METS: INDICATIONS: Chest pain. CLINICAL INFORMATION: Baseline EKG shows sinus rhythm, normal axis, normal intervals. Patient was given intravenous Persantine per protocol. Did not have chest pain or diagnostic ST-segment depression. CONCLUSIONS: 1. Negative stress test by EKG criteria. 2. Cardiolite portion of the stress test will be reported separately. MMODL / IJN: [id number] /
--- NOTE | 2018-11-04 12:01 | NM ---
EXAMINATION TYPE: NM stress persantine cardiolit DATE OF EXAM: 11/04/2018 COMPARISON: NONE HISTORY: Chest pain TECHNIQUE: After the intravenous administration of 10.16 mCi Tc 99m Sestamibi - Cardiolite resting S PECT images acquired 45 minutes post injection. The patient received 50 mg Persantine, 26.0 mCi Tc 99m Sestamibi - Stress images obtained 30 minutes post injection FINDINGS: Review of stress and rest SPECT images demonstrates no reversible perfusion abnormality. Some physiol ogic apical thinning is noted. There is a small fixed to segment defect in the apical inferior and mi d inferior segments relating to artifact either from breast tissue, adjacent liver, or GI attenuation as gated analysis shows normal wall motion. There is an estimated left ventricular ejection fraction of 55 %. TID is abnormal measured at 1.38. IMPRESSION: 1. Abnormal elevated TID that can be seen in balanced 3 vessel ischemia or cardiomyopathy. 2. Estimated left ventricular ejection fraction of 55%.
[2018-11-04] MEDS: ASPIRIN 325 MG TAB PO SCH (12:40)
[2018-11-04] MEDS: FAMOTIDINE 20 MG TAB PO SCH (12:41)
[2018-11-04] MEDS: METOPROLOL TARTRATE 50 MG TAB PO SCH (12:41)
--- NOTE | 2018-11-04 14:06 | CT ---
EXAMINATION TYPE: CT chest w con DATE OF EXAM: 11/04/2018 COMPARISON: 03/05/2018 HISTORY: chest pain/hypoxia CT DLP: 518.3 mGycm, Automated exposure control for dose reduction was used. CONTRAST: Performed injected with 100 mL of Isovue 300. TECHNIQUE: Axial images were obtained at 5 mm thick sections. Reconstructed images are reviewed on [employer] computer in the coronal plane. FINDINGS: Portion of the thyroid visualized is normal. No suspicious lung nodules are evident. There is some compressive atelectasis within the posterior ri ght lung base. No enlarged mediastinal or hilar adenopathy is evident. The ascending aorta diameter at the level o f the main pulmonary artery is 3.3 cm. The main pulmonary artery diameter at the bifurcation is 3.[address] sections are obtained through the upper abdomen. Abdomen is essentially unremarkable. IMPRESSIONS: 1. Mild right lower lobe compressive atelectasis
[2018-11-04] MEDS: LOSARTAN 50 MG TAB PO SCH (14:35)
[2018-11-04] MEDS: HYDROcodone/APAP 10-325MG 1 EACH TAB PO SCH (14:35)
--- NOTE | 2018-11-04 16:14 | P.PN ---
Subjective Progress Note Date: 11/04/18 72-year-old female one of Dr. 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 fib seen Dr. Lara on regular basis has been on warfarin and beta liban and doing well. 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 Went [place] the shopping [place] and a blood to have significant tightness and pressure in the midsternal area radiating toward both shoulder and jaw was associated with significant shortness of breath mild palpitation mild lightheadedness without syncope had nausea with no vomiting patient symptom or much worse ended up coming back to the pharmaceutical salesperson office and complain about a current problem was instructed to go to the emergency department. She was seen and evaluated at [facility] emergency EKG did not show major tachycardia the time still in A. fib no ST elevation or abnormality, CK with troponin was negative with her current symptoms patient will be hospitalized for atypical angina. Her d-dimer was negative no CTA was done at the time but patient was very hypoxic in the ER also was very hyponatremic with hypomagnesemia as well. Was started on fluid restriction and magnesium replacement therapy and hospitalized. 11/04: Patient has been seen by cardiology with plan for echocardiogram and Persantine stress test. If these are normal aspirin to be discontinued. Patient has been continued on Coumadin and her home medication regime. Due to hyponatremia, consult has been added for nephrology and serum osmolality, urine osmolality ordered. Patient has been afebrile, heart rate 94, blood pressure 118/81, pulse ox 95% on room air. INR is 1.7, sodium 123, potassium 4.0, chloride 89, CO2 26, BUN 18 and creatinine 0.86. Magnesium 2.4, total bilirubin 1.6. Troponins of the negative on 3 draws. Triglycerides 64, cholesterol 1:30, LDL 68, HDL 49. TSH 3.190. Recheck lab work in the morning, possible discharge home tomorrow pending consultants input, lab work and stress test results. Objective - Vital Signs Vital signs: Vital Signs Temp 97.7 F 11/04/18 04:58 Pulse 87 11/04/18 04:58 Resp 18 11/04/18 04:58 BP 102/70 11/04/18 04:58 Pulse Ox 97 05/23/19 04:58 Intake & Output 11/03/18 11/04/18 11/04/18 18:59 06:59 18:59 Intake Total 300 Balance 300 Weight 90.718 kg 87.7 kg Intake: Intake, IV Titration 300 Amount Magnesium Sulfate-D5w Pmx 300 1 gm In Dextrose/Water 1 100ml.bag @ 100 mls/hr IVPB Q1H LIBBY Rx#: [id number] Other: Voiding Method Toilet # Voids 1 - Exam Review of Systems CONSTITUTIONAL: Well-developed no acute respiratory distress. EYES: No icterus sclerae, no conjunctivitis. EARS, NOSE, MOUTH, THROAT, and FACE: No sore throat, lymphadenopathy, carotid bruits or deformity. RESPIRATORY: Mild shortness of breath no cough or wheezes. CARDIOVASCULAR: Positive chest pain with palpitation PND orthopnea, and angina GASTROINTESTINAL: No Abd pain, Nausea or vomiting, no Diarrhea or constipation, No GI Bleed, no distention or masses. GENITOURINARY: Negative for Hematuria or UTI, no kidney stones. INTEGUMENT/BREAST: Negative for any muscular injury with mild osteoarthritis.. HEMATOLOGIC/LYMPHATIC: Negative for bleed or purpura. MUSCULOSKELTAL: Negative for Myalgia or arthralgia. NEURLOGICAL: No LOC, Sz or syncope, blurred vision dizziness or abnormality.. BEHAVIORAL/PSYCH: Negative. ENDOCRINE: Negative. General Appearance: Alert, cooperative, no distress, appears stated age. Neck HEENT: Supple, no lymphadenopathy, no thyroid enlargement, no carotid bruits. Lungs: Decreased breath some bilaterally with fine rhonchi no crackles or wheeze s. Chest Wall: Decrease expansion with deep inspiration no tenderness and no deformity was found on exam, no costochondral pain or discomfort. Heart: Irregular rate and rhythm, S1, S2 positive history no JVD, no murmur, rub or gallop. Back: Symmetric, no curvature, ROM normal, no CVA tenderness. Abdomen: Soft, non-tender, bowel sounds active all four quadrants, no masses, no organomegaly. Extremities: Extremities normal, atraumatic, no cyanosis or edema. Severe arthritis in both knees. Pulses: 2+ and symmetric. Skin: Skin color, texture, tugor normal, no rashes or lesions. Neurologic: Alert oriented x3 cranial nerves II through XII intact, no motor deficit, no abnormal balance or gait. - Labs CBC & Chem 7: 11/04/18 05:24 11/04/18 05:24 Labs: Abnormal Lab Results - Last 24 Hours (Table) 11/03/18 11/03/18 11/03/18 Range/Units 17:35 17:35 17:35 Neutrophils # 8.8 H (1.3-7.7) k/uL Lymphocytes # 0.6 L (1.0-4.8) k/uL PT 22.0 H (9.0-12.0) sec INR 2.3 H (<1.2) Sodium 125 L (137-145) mmol/L Chloride 90 L (98-107) mmol/L BUN 20 H (7-17) mg/dL Glucose 104 H (74-99) mg/dL Magnesium 1.4 L (1.6-2.3) mg/dL Total Bilirubin (0.2-1.3) mg/dL Total Protein (6.3-8.2) g/dL 11/04/18 11/04/18 Range/Units 05:24 05:24 Neutrophils # (1.3-7.7) k/uL Lymphocytes # (1.0-4.8) k/uL PT 16.8 H (9.0-12.0) sec INR 1.7 H (<1.2) Sodium 123 L (137-145) mmol/L Chloride 89 L (98-107) mmol/L BUN 19 H (7-17) mg/dL Glucose (74-99) mg/dL Magnesium 2.4 H (1.6-2.3) mg/dL Total Bilirubin 1.6 H (0.2-1.3) mg/dL Total Protein 6.1 L (6.3-8.2) g/dL Assessment and Plan Plan: 1 unstable angina. Cardiology consult appreciated. Echocardiogram and Persantine stress test. 2 chronic atrial fibrillation: Pulse rate has been under control lately remain on metoprolol 50 mg daily still on warfarin 5 mg alternate 7.5 mg with therapeutic INR so far. 3 severe hypoxia: Leg in her chest x-ray looks like mild pulmonary fibrosis is not a clear whether that's from radiation pneumonitis from her breast cancer or something in you ongoing still might order CT of the chest to exclude any other possibility patient might benefit from seen pulmonary as well. 4 severe hyponatremia: Most likely SIADH, according to her had recent lab with Dr. Santana result were normal with a sodium being 125 quite bit low at the time not a clear whether it's related to occult pneumonia, infection or just polydipsia with SIADH, we'll consult nephrology patient will be on fluid restriction and either demeclocycline and and bicarbonate can be use. 5 hypothyroidism: Continue patient on levothyroxine 137 g daily. 6 hypomagnesemia: With no abnormality on EKG so far patient will have magnesium protocol for correction repeat magnesium level in 24 hours. 7 hypertension: Has been on myocardial this 80 mg daily and metoprolol 50 mg daily we will stop hydrate diarrheal completely as can be the reason for the hyponatremia. 8 GI prophylaxis: Patient will be on Pepcid 20 mg daily. 9 DVT prophylaxis: Continue Coumadin. CODE STATUS: Full code. Discharge plan: Home in the next 24 hours Impression and plan of care have been directed as dictated by the signing physician. Asya Peguero nurse practitioner acting as scribe for signing physician.
[2018-11-04] MEDS ORDERED: WARFARIN 5 MG TAB PO SCH (18:00)
[2018-11-04] MEDS ORDERED: PRAVASTATIN SODIUM 40 MG TAB PO SCH (21:00)
[2018-11-04] MEDS ORDERED: LEVOTHYROXINE 137 MCG TAB PO SCH (21:00)
[2018-11-05 06:37] LABS: Calcium 9.3 mg/dL (8.4-10.2); Magnesium 1.8 mg/dL (1.6-2.3); Potassium 4.2 mmol/L (3.5-5.1)
[2018-11-05 06:54] LABS: INR 1.6 (<1.2)
[2018-11-05] MEDS: METOPROLOL TARTRATE 50 MG TAB PO SCH (08:19)
[2018-11-05] MEDS: ASPIRIN 325 MG TAB PO SCH (08:19)
[2018-11-05] MEDS: FAMOTIDINE 20 MG TAB PO SCH (08:20)
--- NOTE | 2018-11-05 08:40 | P.PN ---
Subjective Patient is seen in follow-up for hyponatremia which is due to thiazide diuretics and poor solute intake. Sodium level is up to 126. No vomiting or diarrhea. Denies chest pain or shortness of breath. Urine output has been good. Vital signs are stable. General: The patient appeared well nourished and normally developed. HEENT: Head exam is unremarkable. Neck is without jugular venous distension. LUNGS: Lungs are clear to auscultation and percussion. Breath sounds decreased. HEART: Rate and Rhythm are regular. First and second heart sounds normal. No murmurs, rubs or gallops. ABDOMEN: Abdominal exam reveals normal bowel sounds. Non-tender and non- distended. No evidence of peritonitis. EXTREMITITES: No clubbing, cyanosis, or edema. Objective - Vital Signs Vital signs: Vital Signs Temp 97.9 F 11/05/18 06:03 Pulse 82 11/05/18 06:03 Resp 16 11/05/18 06:03 BP 120/83 11/05/18 06:03 Pulse Ox 99 11/05/18 06:03 Intake & Output 11/04/18 11/05/18 11/05/18 18:59 06:59 18:59 Intake Total 240 480 Output Total 300 Balance 240 -300 480 Weight 88 kg Intake: Oral 240 480 Output: Urine 300 Other: Voiding Method Toilet Toilet # Voids 1 1 - Labs CBC & Chem 7: 11/04/18 05:24 11/05/18 05:33 Labs: Abnormal Lab Results - Last 24 Hours (Table) 11/04/18 11/04/18 11/05/18 Range/Units 05:24 17:35 05:33 PT 16.0 H (9.0-12.0) sec INR 1.6 H (<1.2) Sodium 125 L (137-145) mmol/L Chloride (98-107) mmol/L BUN (7-17) mg/dL Osmolality 258 L (280-301) mosm/kg 11/05/18 Range/Units 05:33 PT (9.0-12.0) sec INR (<1.2) Sodium 126 L (137-145) mmol/L Chloride 92 L (98-107) mmol/L BUN 23 H (7-17) mg/dL Osmolality (280-301) mosm/kg Assessment and Plan Plan: Assessment: 1. Hyponatremia. Patient currently appears euvolemic. Etiology is poor solute intake and use of thiazide diuretic. Sodium level improved to 126 today. TSH and uric acid levels are normal. Cortisol level normal as well. Urine osmolality 313. 2. Benign hypertension. Controlled. 3. Hypomagnesemia secondary to diuretics. Better. 4. History of A. fib. Maintained on Lopressor and Coumadin. 5. Chest pain. Cardiology following. Stress test negative. Plan: Remains off IV fluids. Avoid thiazide diuretics. Maintain 1200 mL fluid restriction. Encouraged solute intake. Maintain ensure 3 times daily. I will add sodium chloride tablets twice a day 4 doses.
[2018-11-05] MEDS ORDERED: LOSARTAN 50 MG TAB PO SCH (09:00)
[2018-11-05] MEDS ORDERED: FAMOTIDINE 20 MG TAB PO SCH (09:00)
[2018-11-05] MEDS ORDERED: SODIUM CHLORIDE TAB 1 GM TAB PO SCH (09:00)
[2018-11-05 09:22] VITALS: BP 111/72; PULSE 79; RESP 20; TEMP 97.5
--- NOTE | 2018-11-05 09:40 | ECHOF ---
Referral Reason:chest pain MEASUREMENTS -------- HEIGHT: 152.4 cm WEIGHT: 87.5 kg BP: RVIDd: 3.2 cm (< 3.3) IVSd: 1.3 cm (0.6 - 1.1) LVIDd: 3.6 cm (3.9 - 5.3) LVPWd: 1.6 cm (0.6 - 1.1) IVSs: 2.1 cm LVIDs: 1.5 cm LVPWs: 1.9 cm LAESV Index (A-L): 33.20 ml/m Ao Diam: 2.8 cm (2.0 - 3.7) AV Cusp: 1.7 cm (1.5 - 2.6) LA Diam: 5.0 cm (2.7 - 3.8) EPSS: 0.6 cm RAP: 5.00 mmHg RVSP: 26.41 mmHg MV EF SLOPE: 111.39 mm/s (70 - 150) MV EXCURSION: 1.21 cm (> 18.000) FINDINGS -------- Atrial fibrillation. This was a technically adequate study. The left ventricular size is normal. There is moderate concentric left ventricular hypertrophy. O verall left ventricular systolic function is normal with, an EF between 55 - 60 %. The right ventricle is normal in size. Left atrium is mildly dilated by volume. The right atrial size is normal. Interatrial and interventricular septum intact. The aortic valve is trileaflet and appears structurally normal. The mitral valve leaflets are mildly thickened. Mild mitral regurgitation is present. Mild tricuspid regurgitation present. The right ventricular systolic pressure, as measured by Doppl er, is 26.41mmHg. The aortic root size is normal. The inferior vena cava was not well visualized. There is no pericardial effusion. CONCLUSIONS -------- 1. Atrial fibrillation. 2. This was a technically adequate study. 3. The left ventricular size is normal. 4. There is moderate concentric left ventricular hypertrophy. 5. Overall left ventricular systolic function is normal with, an EF between 55 - 60 %. 6. The right ventricle is normal in size. 7. Left atrium is mildly dilated by volume. 8. The right atrial size is normal. 9. Interatrial and interventricular septum intact. 10. The aortic valve is trileaflet and appears structurally normal. 11. The mitral valve leaflets are mildly thickened. 12. Mild mitral regurgitation is present. 13. Mild tricuspid regurgitation present. 14. The right ventricular systolic pressure, as measured by Doppler, is 26.41mmHg. 15. The aortic root size is normal. 16. The inferior vena cava was not well visualized. 17. There is no pericardial effusion. [employer]OR [employer] SUPERVISOR: Aye Stephenson RDCS
--- NOTE | 2018-11-05 11:47 | P.DS ---
Providers Date of admission: 11/03/18 18:46 Expected date of discharge: 11/05/18 Attending physician: Octavio Nieves Consults: 11/03/18 18:46 Consult Physician Urgent Consulting Provider: Terry Delcid Consult Reason/Comments: arrhythmia,cp Do you want consulting provider notified?: Yes 11/04/18 08:50 Consult Physician Routine Consulting Provider: Prince Poon Consult Reason/Comments: hyponatremia Do you want consulting provider notified?: Yes Primary care physician: Je Santana [place] [facility] Course: 72-year-old female one of Dr. 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 fib seen Dr. Lara on regular basis has been on warfarin and beta liban and doing well. 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 Went to the shopping center and a blood to have significant tightness and pressure in the midsternal area radiating toward both shoulder and jaw was associated with significant shortness of breath mild palpitation mild lightheadedness without syncope had nausea with no vomiting patient symptom or much worse ended up coming back to the food sales clerk office and complain about a current problem was instructed to go to the emergency department. She was seen and evaluated at [facility] emergency EKG did not show major tachycardia the time still in A. fib no ST elevation or abnormality, CK with troponin was negative with her current symptoms patient will be hospitalized for atypical angina. Her d-dimer was negative no CTA was done at the time but patient was very hypoxic in the ER also was very hyponatremic with hypomagnesemia as well. Was started on fluid restriction and magnesium replacement therapy and hospitalized. 11/04: Patient has been seen by cardiology with plan for echocardiogram and Persantine stress test. If these are normal aspirin to be discontinued. Patient has been continued on Coumadin and her home medication regime. Due to hyponatremia, consult has been added for nephrology and serum osmolality, urine osmolality ordered. Patient has been afebrile, heart rate 94, blood pressure 118/81, pulse ox 95% on room air. INR is 1.7, sodium 123, potassium 4.0, chloride 89, CO2 26, BUN 18 and creatinine 0.86. Magnesium 2.4, total bilirubin 1.6. Troponins of the negative on 3 draws. Triglycerides 64, cholesterol 1:30, LDL 68, HDL 49. TSH 3.190. Recheck lab work in the morning, possible discharge home tomorrow pending consultants input, lab work and stress test results. 11/05: CAT scan of the brain shows mild right lower lobe compressive atelectasis. There is no mention of pulmonary fibrosis. Patient has been seen and followed by Dr. Poon. Repeat sodium this morning is 126, potassium 4.2, chloride 92, CO2 26, BUN 23 and creatinine 0.97. Magnesium is 1.8. Pulse ox is 98% on room air, blood pressure 111/72, heart rate 79, patient is been afebrile. Patient states that she must leave the hospital today due to family matters at home. Dr. Poon as recommended avoiding thiazide diuretics, continue fluid restriction and added sodium chloride tablets. Echocardiogram reveals EF 55- 60%, mild mitral regurgitation, mild tricuspid regurgitation. Persantine stress test negative by EKG criteria. Patient has been cleared for discharge by cardiology. Patient will be discharged home today in stable condition. Discharge diagnoses: 1 unstable angina. 2 chronic atrial fibrillation 3 chest x-ray mild pulmonary fibrosis ruled out on CAT scan. 4 severe hyponatremia secondary to thiazide diuretics and poor oral intake 5 hypothyroidism 6 hypomagnesemia secondary to diuretics 7 hypertension Discharge plan: Home in the next 24 hours Impression and plan of care have been directed as dictated by the signing physician. Asya Peguero nurse practitioner acting as scribe for signing physician. Patient Condition at Discharge: Good Plan - Discharge Summary Discharge Rx Participant: Yes New Discharge Prescriptions: New Sodium Chloride Tab 1 gm PO BID #60 tab Continue Pravastatin Sodium [Pravachol] 40 mg PO HS Aspirin EC [Ecotrin Low Dose] 81 mg PO DAILY HYDROcodone/APAP 10-325MG [[place] 10-325] 1 tab PO TID Warfarin [Coumadin] 5 mg PO SUTUWEFRSA Telmisartan [Micardis] 80 mg PO DAILY Metoprolol Tartrate [Lopressor] 50 mg PO DAILY Levothyroxine Sodium [Synthroid] 137 mcg PO HS Warfarin [Coumadin] 7.5 mg PO MOTH Discontinued Hydrochlorothiazide [Hydrodiuril] 25 mg PO DAILY Discharge Medication List Aspirin EC [Ecotrin Low Dose] 81 mg PO DAILY 09/18/14 [History] Pravastatin Sodium [Pravachol] 40 mg PO HS 09/18/14 [History] HYDROcodone/APAP 10-325MG [[place] 10-325] 1 tab PO TID 11/10/14 [History] Levothyroxine Sodium [Synthroid] 137 mcg PO HS 11/03/18 [History] Metoprolol Tartrate [Lopressor] 50 mg PO DAILY 11/03/18 [History] Telmisartan [Micardis] 80 mg PO DAILY 11/03/18 [History] Warfarin [Coumadin] 5 mg PO SUTUWEFRSA 11/03/18 [History] Warfarin [Coumadin] 7.5 mg PO MOTH 11/03/18 [History] Sodium Chloride Tab 1 gm PO BID #60 tab 11/05/18 [Rx] Follow up Appointment(s)/Referral(s): Vinayak Lara MD [STAFF PHYSICIAN] - 11/24/18 4:30 pm (Thursday) [facility], [NON-STAFF] - 1-2 Days Prince Poon DO [STAFF PHYSICIAN] - 1 Week (Spoke to information receptionist. Office will call with appointment time.) Je Santana MD [Primary Care Provider] - 11/11/18 1:15 pm () Ambulatory/Diagnostic Orders: Comprehensive Metabolic Panel [LAB.AMB] Location: None Selected Patient Instructions/Handouts: Chest Pain (ED), Hyponatremia (DC) Activity/Diet/Wound Care/Special Instructions: 1500ml fluid restriction Discharge Disposition: HOME WITH HOME HEALTH SERVICES
--- NOTE | 2018-11-05 12:01 | P.PN ---
Subjective Progress Note Date: 11/05/18 This is a pleasant 72-year-old female who follows with Dr. Layton in the office, she has a known history of persistent atrial fibrillation, hypertension, hyperlipidemia, nondiabetic, nonsmoker, no documented coronary artery disease in the past, history of hypothyroidism. She states that she was at the office yesterday to picker tender a 24-hour Holter monitor, after that she went to get some groceries while at the grocery store she states that she developed a pain in the center of her chest which radiated up into her bilateral jaw areas, she was short of breath with these symptoms. She walked out to her car put her groceries in the car, called the physician's office and was directed to come here for admission. Has not had any prior cardiac catheterization but she does state that she had a stress test several years ago. She also has significant issues with her neck and spine for which she has had cervical fusion performed in the past. Chest x-ray showed mild pulmonary fibrosis. EKG on presentation here showed atrial fibrillation with a controlled ventricular response. No acute changes noted. I pressure on arrival here 110/70 with a heart rate in the 80s, 97% on room air. Weight blood cell count 6.8, hemoglobin 12.5, platelet count 213. Pro time on admission 22 with an INR of 2.3, INR this morning 1.7, d-dimer 0.45. Sodium 123, potassium 4.0, BUN 19 and creatinine 0.8. NEC and 1.4 on admission, 2.4 this morning. Troponins are negative 3. Total bilirubin 1.6, BNP level 1710. At the time of my examination this morning, patient continues to have chest discomfort, significantly worse when she takes a deep breath. Her breathing is overall stable, denies any diaphoresis, no dizziness or lightheadedness. 11/05/2018 Patient was seen and examined this morning, underwent a Persantine stress test yesterday that was negative for any reversible ischemia. Echocardiogram with Doppler study showed an ejection fraction of 55-60%. Objective - Vital Signs Vital signs: Vital Signs Temp 97.5 F L 11/05/18 08:00 Pulse 79 11/05/18 08:00 Resp 20 11/05/18 08:00 BP 111/72 11/05/18 08:00 Pulse Ox 98 11/05/18 08:00 Intake & Output 11/04/18 11/05/18 11/05/18 18:59 06:59 18:59 Intake Total 240 480 Output Total 300 Balance 240 -300 480 Weight 88 kg Intake: Oral 240 480 Output: Urine 300 Other: Voiding Method Toilet Toilet # Voids 1 1 - Exam PHYSICAL EXAMINATION: GENERAL: 72-year-old female in no acute distress at the time of my examination HEENT: Head is atraumatic, normocephalic. Pupils equal, round. Sclera anicteric. Conjunctiva are clear. Mucous membranes of the mouth are moist. Neck is supple. There is no elevated jugular venous pressure. No carotid bruit is heard. HEART EXAMINATION: Heart S1 and S2 irregularly irregular a systolic murmur is heard CHEST EXAMINATION: Lungs are clear with fine crackles to bilateral bases. Positive chest wall pain with inspiration ABDOMEN: [ Soft, obese, nontender. Bowel sounds are heard. No organomegaly noted]. EXTREMITIES:[ 2+ peripheral pulses with trace evidence of peripheral edema and no calf tenderness noted]. NEUROLOGIC [patient is awake, alert and oriented 3 ] - Labs CBC & Chem 7: 11/04/18 05:24 11/05/18 05:33 Labs: Abnormal Lab Results - Last 24 Hours (Table) 11/04/18 11/05/18 11/05/18 Range/Units 17:35 05:33 05:33 PT 16.0 H (9.0-12.0) sec INR 1.6 H (<1.2) Sodium 125 L 126 L (137-145) mmol/L Chloride 92 L (98-107) mmol/L BUN 23 H (7-17) mg/dL Assessment and Plan Plan: Assessment and plan #1 chest pain, with atypical features for acute coronary syndrome. Troponins negative 3. EKG shows atrial fibrillation with no acute changes. #2 chronic persistent atrial fibrillation, on Coumadin for anticoagulation #3 hypertension #4 hyperlipidemia #5 hypomagnesemia, replaced #6 hyponatremia #7 elevated BNP level with no evidence of acute heart failure #8 cervical and spine issues for which the patient has undergone a cervical fusion in the past #9 hypothyroidism Plan Persantine stress test negative for any reversible ischemia, echo showed normal LV function. From cardiology's perspective, patient may be able to be discharged home today, follow-up appointment in the office post discharge. DNP note has been reviewed, I agree with a documented findings and plan of care. Patient was seen and examined.
[2018-11-05] MEDS ORDERED: WARFARIN 5 MG TAB PO SCH (18:00)
== END 2018-11-05 13:15 | disposition home health service (06) | DRG 645 ==
LOC: EC 16:32 → 3SCARD 18:46
PROVIDERS: ADMIT Internal Medicine Geriatric Medicine; ATTEND Internal Medicine Geriatric Medicine
DX: E22.2 Syndrome of inappropriate secretion of antidiuretic hormone (principal); R07.89 Other chest pain; I48.2 Chronic atrial fibrillation; K21.9 Gastro-esophageal reflux disease without esophagitis; E83.42 Hypomagnesemia; E03.9 Hypothyroidism, unspecified; E78.5 Hyperlipidemia, unspecified; I10 Essential (primary) hypertension; Z96.653 Presence of artificial knee joint, bilateral; Z96.641 Presence of right artificial hip joint; Z79.01 Long term (current) use of anticoagulants; Z79.82 Long term (current) use of aspirin; Z79.890 Hormone replacement therapy; Z79.899 Other long term (current) drug therapy; Z98.1 Arthrodesis status; Z92.3 Personal history of irradiation; Z85.3 Personal history of malignant neoplasm of breast; Z88.5 Allergy status to narcotic agent; Z86.14 Personal history of Methicillin resistant Staphylococcus aureus infection; Z82.49 Family history of ischemic heart disease and other diseases of the circulatory system; T50.2X5A Adverse effect of carbonic-anhydrase inhibitors, benzothiadiazides and other diuretics, initial encounter; R09.02 Hypoxemia; J84.10 Pulmonary fibrosis, unspecified
CPT/HCPCS: 36415; 71046; 71260; 78452; 80048; 80053; 80061; 82533; 83690; 83735; 83880; 83930; 83935; 84295; 84300; 84443; 84484; 84550; 85025; 85379; 85610; 85730; 93005; 93017; 93306; 96361; 96374; 99285

== ENCOUNTER → 2019-07-07 | Outpatient (CLI) | payer MEDICARE ==
--- NOTE | 2019-07-07 14:04 | MM ---
Reason for exam: follow-up at short interval from prior study. Last mammogram was performed 7 months ago. History: Patient is postmenopausal and has history of breast cancer at age 61. Family history of breast cancer in cousin at age 30 and breast cancer in aunt at age 50. Radiation therapy of the right breast, 2007. Lumpectomy of the right breast, May 25, 2007. Malignant US right core biopsy of the right breast, April 28, 2007. Took antineoplastic for 5 years beginning at age 62. Physical Findings: Nurse did not find any significant physical abnormalities on exam. MG 3D Diag Mammo W/Cad KEN Bilateral CC and MLO view(s) were taken. XCCL view(s) were taken of the right breast. Prior study comparison: December 15, 2018, left breast MG 3d diag mammo w/cad LT. May 28, 2018, bilateral MG 3d diag mammo w/cad KEN. There are scattered fibroglandular densities. No significant new findings when compared with previous films. These results were verbally communicated with the patient and result sheet given to the patient on 07/07/19. ASSESSMENT: Benign, BI-RAD 2 RECOMMENDATION: Follow-up diagnostic mammogram of both breasts in 1 year.
== END | disposition home or self-care (01) ==
LOC: RADMAMWWP 12:42
PROVIDERS: ATTEND Family Medicine
DX: Z08 Encounter for follow-up examination after completed treatment for malignant neoplasm (principal); Z85.3 Personal history of malignant neoplasm of breast
CPT/HCPCS: 77066; G0279; 77062

== ENCOUNTER → 2021-05-03 | Outpatient (CLI) | payer MEDICARE ==
--- NOTE | 2021-05-06 12:41 | MM ---
Reason for exam: additional evaluation requested from prior study. Last mammogram was performed 1 year and 10 months ago. History: Patient is postmenopausal and has history of breast cancer at age 61. Family history of breast cancer in cousin at age 30 and breast cancer in aunt at age 50. Radiation therapy of the right breast, 2008. Lumpectomy of the right breast, May 25, 2007. Malignant US right core biopsy of the right breast, April 28, 2007. Took antineoplastic for 5 years beginning at age 62. Physical Findings: Nurse did not find any significant physical abnormalities on exam. MG 3D Diag Mammo W/Cad KEN Bilateral CC and MLO view(s) were taken. Prior study comparison: July 07, 2019, bilateral MG 3d diag mammo w/cad KEN. December 15, 2018, left breast MG 3d diag mammo w/cad LT. There are scattered fibroglandular densities. Post surgical and post therapy change right breast. Benign vascular calcifications. No significant new findings when compared with previous films. These results were verbally communicated with the patient and result sheet given to the patient on 05/03/21. ASSESSMENT: Benign, BI-RAD 2 RECOMMENDATION: Routine screening mammogram of both breasts in 1 year.
== END | disposition home or self-care (01) ==
LOC: RADMAMWWP 14:51
PROVIDERS: ATTEND Family Medicine
DX: R92.1 Mammographic calcification found on diagnostic imaging of breast (principal); R92.8 Other abnormal and inconclusive findings on diagnostic imaging of breast; Z85.3 Personal history of malignant neoplasm of breast; Z80.3 Family history of malignant neoplasm of breast
CPT/HCPCS: 77066; G0279; 77062

== ENCOUNTER → 2022-04-24 | Outpatient (CLI) | payer MEDICARE ==
--- NOTE | 2022-04-24 16:12 | P.SLEEP ---
History of Present Illness DATE: 04/24/2022 CONSULTATION/NEW PATIENT EVALUATION HISTORY OF PRESENT ILLNESS/SLEEP-WAKE EVALUATION: 76year old lady had been evaluated in the sleep center for possible obstructive sleep apnea hypopnea syndrome. SLEEP SCHEDULE: Usually sleep schedule from 10:30 PM until 8:30 AM. FALLING ASLEEP: No problems with the falling asleep, no TV in bedroom. DURING SLEEP: Patient sleeps with the snoring and multiple awakenings from sleep up to 5 times with nocturia. No history of hypnogogical hallucinations, sleep paralysis, or cataplexy. DURING THE DAY/WAKE STATE: In the morning patient wake up tired. [place] sleepiness scale is 5. Patient usually takes 1 nap at 3 to 5 PM. PAST MEDICAL HISTORY: Hypertension, arterial fibrillation, hypothyroidism, arthritis, right breast CA, legally blind for macular degeneration. PAST SURGICAL HISTORY: Bilateral hip replacement, bilateral knee replacement, cervical surgery, right breast lumpectomy. MEDICATIONS: Tramadol 50 mg 3 times a day, pravastatin 40 mg once a day, levothyroxine 150 g once a day, irbesartan 300 mg once a day. SOCIAL HISTORY: Negative for smoking, alcohol consumption none at the present time. FAMILY HISTORY: Hypertension, heart problems, stroke, myasthenia gravis, diabetes, aortic aneurysm. REVIEW OF SYSTEMS: Snoring, multiple awakenings from sleep, sleepiness during the day. No fevers. No double vision. No recent chest pain. No shortness of breath. No abdominal pain. No bleeding episodes. No blood in urine. No seizure episodes. PHYSICAL EXAMINATION: GENERAL: A pleasant patient without any distress. VITAL SIGNS: BP 178/106 , HR 82 , RR 16 , weight 188.2 pounds, height 4 foot 11 inches, body mass index 37.9 . HEENT: PERRLA, EOMI. Evaluation of oropharynx showed tongue protrudes midline, low position of soft palate Mallampati 4. NECK: Supple. No JVD. Thyroid is not palpable. 16-1/2 inches in circumference. LUNGS: Clear to percussion and to auscultation. Good air exchange. No wheezing or rhonchi. HEART: S1, S2 irregular. No murmurs, gallops or rubs. ABDOMEN: Soft and nontender. Bowel sounds are present. No organomegaly appreciated. EXTREMITIES: No clubbing or cyanosis. EMBEDDED LINUX ENGINEER: Awake, alert, and oriented x3. Cranial nerves 2 to 7 intact. There is no fasciculation or atrophy noted. No focal deficits observed. ASSESSMENT: 1. Snoring, multiple awakenings from sleep, extremely low position of soft palate Mallampati 4, wide neck 16-1/2 inches in circumference. Obstructive sleep apnea hypopnea syndrome. 2. atrial fibrillation. 3 hypertension. 4. Hypothyroidism. 5 obesity, BMI 37.9. 6. History of right breast CA, status post lumpectomy, radiation therapy. 7. Status post bilateral total hip replacement. 8. Status post bilateral knee replacement. 9. Status post cholecystectomy. 10. Status post tubal ligation. 11. Legally blind secondary to macular degeneration. 12. Status post cervical surgery. PLAN: 1. Home sleep apnea test for evaluation of patient's breathing during sleep, patient has difficulties with transportation to sleep center secondary to her blindness. 2. CPAP/BiPAP titration if sleep study confirms obstructive sleep apnea- hypopnea syndrome. 3. Preferable position during sleep on the side. 4. No driving secondary to blindness. 5. Sleep hygiene with regular sleep time for at least 7.5-8 hours. 6. Watching weight. Thank you very much for referring this patient for consultation. Sincerely, Ford Dean MD, PhD, FAASM. Diplomat of [place] [employer], Sleep Medicine Board by [place] [employer] [place] [employer] Lead Cytogenetic Technologist of [facility] Past Medical History Past Medical History: Atrial Fibrillation, Cancer, GERD/Reflux, Hyperlipidemia, Hypertension, Osteoarthritis (OA), Thyroid Disorder Additional Past Medical History / Comment(s): HX OF RT BREAST CANCER WITH RADIATION 2008., BACK AND HIP PAIN. History of Any Multi-Drug Resistant Organisms: MRSA Date of last positivie culture/infection: 1997 MDRO Source:: RT BUNIONECTOMY Past Surgical History: Back Surgery, Cholecystectomy, Joint Replacement Additional Past Surgical History / Comment(s): 2003 CERVICAL FUSION, LT CARPAL TUNNEL, RT HIP REPLACEMENT, KEN KNEE REPLACEMENT, KEN BUNIONECTOMY, 2007 RT BREAST LUMPECTOMY. Past Anesthesia/Blood Transfusion Reactions: No Reported Reaction Past Psychological History: No Psychological Hx Reported Additional Past Alcohol Use History / Comment(s): No illicit drug use. No alcohol abuse. Patient lives at home with her . Patieant worked in shelter setting. - Past Family History Mother Family Medical History: Hyperlipidemia, Hypertension, Myocardial Infarction ([place]) Additional Family Medical History / Comment(s): Mother at age 59 from a myocardial infarction. Patient had history of 2 previous MIs. Father Additional Family Medical History / Comment(s): Father at age 76 from a ruptured aortic aneurysm. Sister(s) Additional Family Medical History / Comment(s): Patient has one sister with atrial fibrillation. Children have no major medical problems. Medications and Allergies Home Medications Medication Instructions Recorded Confirmed Type Aspirin EC [Ecotrin Low Dose] 81 mg PO DAILY 09/18/14 11/03/18 History Pravastatin Sodium [Pravachol] 40 mg PO HS 09/18/14 11/03/18 History HYDROcodone/APAP 10-325MG [[place] 1 tab PO TID 11/10/14 11/03/18 History 10-325] Levothyroxine Sodium [Synthroid] 137 mcg PO HS 11/03/18 11/03/18 History Metoprolol Tartrate [Lopressor] 50 mg PO DAILY 11/03/18 11/03/18 History Telmisartan [Micardis] 80 mg PO DAILY 11/03/18 11/03/18 History Warfarin [Coumadin] 5 mg PO [id number] 11/03/18 11/03/18 History Warfarin [Coumadin] 7.5 mg PO MOTH 11/03/18 11/03/18 History Sodium Chloride Tab 1 gm PO BID #60 tab 11/05/18 Rx Allergies Allergy/AdvReac Type Severity Reaction Status Date / Time meperidine HCl [From Demerol] AdvReac Unknown Blood Verified 11/03/18 18:30 pressure dropped Sleep Note - Sleep Note Sleep Note: Temperature: Pulse Rate: Respiratory Rate: Blood Pressure: SpO2: Height: Weight: BMI: Neck Circumference:
== END ==
LOC: SLEEP 14:56
PROVIDERS: ATTEND Internal Medicine
DX: G47.33 Obstructive sleep apnea (adult) (pediatric) (principal); I48.91 Unspecified atrial fibrillation; I10 Essential (primary) hypertension; E03.9 Hypothyroidism, unspecified; E66.9 Obesity, unspecified; Z68.37 Body mass index [BMI] 37.0-37.9, adult; Z90.12 Acquired absence of left breast and nipple; Z96.643 Presence of artificial hip joint, bilateral; Z96.653 Presence of artificial knee joint, bilateral; Z90.49 Acquired absence of other specified parts of digestive tract; Z98.51 Tubal ligation status; H54.8 Legal blindness, as defined in USA; Z98.890 Other specified postprocedural states; Z88.8 Allergy status to other drugs, medicaments and biological substances
CPT/HCPCS: 99211

== ENCOUNTER → 2022-06-20 | Outpatient (CLI) | payer MEDICARE ==
--- NOTE | 2022-06-20 15:25 | MM ---
Reason for Exam: Screening (asymptomatic). Last mammogram was performed 1 year(s) and 2 month(s) ago. Patient History: Menarche at age 10. First Full-Term at age 19. Postmenopausal. Breast cancer, age 61. Previous chest radiation therapy at age 61. 05/25/2007, Lumpectomy on the Right side. 04/28/2007, Malignant Core Biopsy on the right side. 2007, Radiation Therapy on the right side. Maternal cousin had breast cancer, age 30. Maternal aunt had breast cancer, age 50. Prior Study Comparison: 12/15/2018 Left Diagnostic Mammogram, [facility]. 07/07/2019 Bilateral Diagnostic Mammogram, [facility]. 05/03/2021 Bilateral Diagnostic Mammogram, [facility]. Tissue Density: There are scattered fibroglandular densities. Findings: Analyzed By CAD. There is no suspicious group of microcalcifications or new suspicious mass in either breast. Postsurgical and posttherapy changes of the right breast redemonstrated. Benign vascular calcifications. Overall Assessment: Benign, BI-RAD 2 Management: Screening Mammogram of both breasts in 1 year. A clinical breast exam by your physician is recommended on an annual basis and results should be correlated with mammographic findings. Electronically signed and approved by: Prem Reaves D.O.
== END | disposition home or self-care (01) ==
LOC: RADMAMWWP 14:57
PROVIDERS: ATTEND Family Medicine
DX: Z12.31 Encounter for screening mammogram for malignant neoplasm of breast (principal); Z78.0 Asymptomatic menopausal state; Z80.3 Family history of malignant neoplasm of breast
CPT/HCPCS: 77063; 77067

== ENCOUNTER → 2022-09-05 | Outpatient (CLI) | payer MEDICARE ==
[2022-09-05 11:18] VITALS: BP 176/88; PULSE 68; RESP 18; TEMP 98.4
--- NOTE | 2022-09-05 11:41 | P.GSHP ---
History of Present Illness H&P Date: 09/05/22 Chief Complaint: right breast cancer 2007 Tete is a 76 year old white female seen in consultation for DR. Santana regarding her prior history of right breast cancer and for screening and surveillance. She had a bilateral mammogram in 1622 post surgical changes were noted in the right breast otherwise no lesions of concern. This was a BIRADS 2. She does not feel any lumps masses or nodules of concern in either breast. She underwent a right breast lumpectomy in May 2007 followed by radiation therapy. Her surgery and radiation treatment were performed at [facility] at that time. She did not have any chemotherapy. She did take some post treatment hormone therapy. Caffiene: 2 cups/day nicotine: none chocolate: occasional Family History: maternal aunt: breast cancer maternal cousin: breast cancer Hormonal History: menarche: 10 , breast fed: no, age at first : 19 menopause: 40's Surgical History: Bilateral knee replacement Bilateral hip replacement Right lumpectomy 2 neck fractures appy gallbladder foot surgery Medical History: urinary retention Social History: nicotine: none alcohol: none drugs: none - Constitutional Constitutional: Denies chills, Denies fever - EENT Comment: macular degeneration legally blind Eyes: bilateral blurred vision, denies pain Ears: deny: decreased hearing, tinnitus Ears, nose, mouth and throat: Denies headache, Denies sore throat - Breasts Breasts: bilateral: as per HPI - Cardiovascular Comment: A-fib Cardiovascular: Reports shortness of breath, Denies chest pain - Respiratory Respiratory: Denies cough, Denies 7 - Gastrointestinal Comment: IBS Gastrointestinal: Denies abdominal pain, Denies diarrhea, Denies nausea, Denies vomiting - Genitourinary (Female) Genitourinary: Denies dysuria, Denies hematuria - Menstruation Menstruation: Reports postmenopausal - Musculoskeletal Musculoskeletal: Reports myalgias - Integumentary Integumentary: Reports pruritus, Denies rash - Neurological Neurological: Denies numbness, Denies weakness - Psychiatric Psychiatric: Denies anxiety, Denies depression - Endocrine Endocrine: Reports weight change, Denies fatigue - Hematologic/Lymphatic Comment: none - Allergic/Immunologic Allergic/Immunologic: Reports seasonal allergies Past Medical History Past Medical History: Atrial Fibrillation, Cancer, GERD/Reflux, Hyperlipidemia, Hypertension, Osteoarthritis (OA), Thyroid Disorder Additional Past Medical History / Comment(s): HX OF RT BREAST CANCER WITH RADIATION 2008., BACK AND HIP PAIN. History of Any Multi-Drug Resistant Organisms: MRSA Date of last positivie culture/infection: 1997 MDRO Source:: RT BUNIONECTOMY Past Surgical History: Back Surgery, Cholecystectomy, Joint Replacement Additional Past Surgical History / Comment(s): 2002 CERVICAL FUSION, LT CARPAL TUNNEL, RT HIP REPLACEMENT, KEN KNEE REPLACEMENT, KEN BUNIONECTOMY, 2006 RT BREAST LUMPECTOMY. Past Anesthesia/Blood Transfusion Reactions: No Reported Reaction Past Psychological History: No Psychological Hx Reported Additional Past Alcohol Use History / Comment(s): No illicit drug use. No alcohol abuse. Patient lives at home with her . Patieant worked in senior living setting. - Past Family History Mother Family Medical History: Hyperlipidemia, Hypertension, Myocardial Infarction ([place]) Additional Family Medical History / Comment(s): Mother at age 59 from a myocardial infarction. Patient had history of 2 previous MIs. Father Additional Family Medical History / Comment(s): Father at age 76 from a ruptured aortic aneurysm. Sister(s) Additional Family Medical History / Comment(s): Patient has one sister with atrial fibrillation. Children have no major medical problems. Medications and Allergies Home Medications Medication Instructions Recorded Confirmed Type Pravastatin Sodium [Pravachol] 40 mg PO HS 09/18/14 11/03/18 History Levothyroxine Sodium [Synthroid] 137 mcg PO HS 11/03/18 09/05/22 History Acetaminophen [Tylenol Extra 500 mg PO DIRECTED PRN 09/05/22 09/05/22 History Strength] Felodipine [Felodipine ER] 2.5 mg PO DAILY 09/05/22 09/05/22 History Irbesartan 300 mg PO DAILY 09/05/22 09/05/22 History traMADol HCL 50 mg PO TID PRN 09/05/22 09/05/22 History Allergies Allergy/AdvReac Type Severity Reaction Status Date / Time meperidine HCl [From Demerol] AdvReac Unknown Blood Verified 09/05/22 11:04 pressure dropped Surgical - Exam - General no distress - Eyes normal ocular movement - Neck trachea midline - Respiratory normal respiratory effort, clear to auscultation - Cardiovascular Rhythm: regular Heart Sounds: normal: S1, S2 - Abdomen Abdomen: soft, non tender, no guarding, no rigid, no rebound - Integumentary normal turgor - Neurologic no disoriented, no combative - Musculoskeletal normal gait - Psychiatric oriented to time, oriented to person, oriented to place, speech is normal, memory intact Breast Exam: BRA: 44D inspection: Right breast smaller than left breast related to lumpectomy and radiation treatment, bilateral grade 3 ptosis Palpation: Right breast: Postsurgical and radiation changes, no dominant masses or nodules of concern Right axilla: No adenopathy of concern Left breast: Multi-positional exam no dominant masses or nodules of concern Left axilla: No adenopathy of concern Results Mammogram reviewed personally Assessment and Plan Assessment: Impression: Bilateral knee replacement Bilateral hip replacement Right lumpectomy 2 neck fractures appy gallbladder foot surgery She is status post right breast lumpectomy and radiation therapy 2007 no evidence of recurrent cancer Recent bilateral mammogram BIRADS 2 Plan: Patient is going to consider a left breast reduction mammoplasty or bilateral mastectomy. She has marked macromastia of the left side and this is causing back pain If the patient decides not to have it done she will have bilateral mammogram in 1 year with physician exam at that time Cc: Dr. Santana
== END ==
LOC: WWCWWP 10:53
PROVIDERS: ATTEND Surgery
DX: C50.911 Malignant neoplasm of unspecified site of right female breast (principal); Z82.49 Family history of ischemic heart disease and other diseases of the circulatory system; Z83.49 Family history of other endocrine, nutritional and metabolic diseases; Z88.6 Allergy status to analgesic agent; Z80.3 Family history of malignant neoplasm of breast

== ENCOUNTER → 2022-10-24 | Outpatient (CLI) | payer MEDICARE ==
[2022-10-24 20:10] LABS: % Iron Saturation 23.33 (12.00-45.00); Albumin 4.5 g/dL (3.8-4.9); Albumin/Globulin Ratio 1.78 (1.60-3.17); BUN/Creat Ratio 29.31 Ratio (12.00-20.00); Blood Urea Nitrogen 29.9 mg/dL (9.0-27.0); Calcium 9.9 mg/dL (8.7-10.3); Carbon Dioxide 24.1 mmol/L (20.0-27.5); Globulin 2.5 g/dL (1.6-3.3); Non-African American GFR(CKD) 52.6 (60.0-200.0); Potassium 4.7 mmol/L (3.5-5.5); Total Bilirubin 0.7 mg/dL (0.30-1.20); Uric Acid 6.2 mg/dL (2.9-7.7)
[2022-10-24 20:46] LABS: Basophils # (A) 0.05 X 10*3/uL (0.00-0.10); Basophils % (A) 0.9 %; Eosinophils # (A) 0.14 X 10*3/uL (0.04-0.35); Eosinophils % (A) 2.6 %; HCT 41.9 % (37.2-46.3); HGB 13.2 g/dL (12.0-15.0); Immature Grans, Automated 0.2 %; Lymphocytes % (A) 27.7 %; MCH 29.3 pg (27.0-32.0); MCHC 31.5 g/dL (32.0-37.0); MCV 93.1 fL (80.0-97.0); Mean Platelet Volume 10.5 fL (9.5-12.2); Monocytes # (A) 0.65 X 10*3/uL (0.20-1.00); NRBC Per 100 WBC 0 /100 WBCS (0.0-0.0); Neutrophils # (A) 3.07 X 10*3/uL (1.80-7.70); Neutrophils % (A) 56.6 %; Platelet Count 212 X 10*3/uL (140-440); WBC 5.42 X 10*3/uL (4.50-10.00)
== END | disposition home or self-care (01) ==
LOC: LABWHC1 15:06
PROVIDERS: ATTEND Internal Medicine
DX: E87.1 Hypo-osmolality and hyponatremia (principal); E55.9 Vitamin D deficiency, unspecified; D64.9 Anemia, unspecified; N39.0 Urinary tract infection, site not specified; M10.9 Gout, unspecified
CPT/HCPCS: 36415; 80053; 82306; 83540; 83550; 83735; 84100; 84550; 85025

== ENCOUNTER → 2022-11-07 | Outpatient (CLI) | payer MEDICARE ==
[2022-11-07 16:15] VITALS: BP 195/95; PULSE 102; RESP 18; TEMP 98
--- NOTE | 2022-11-07 16:20 | P.PN ---
Subjective Progress Note Date: 11/07/22 Principal diagnosis: Asymmetry of the breast, neck pain and kyphosis right breast cancer 2007 Tete is a 76 year old white female seen in consultation for DR. Santana regarding her prior history of right breast cancer and for screening and surveillance. She had a bilateral mammogram on 1622 post surgical changes were noted in the right breast otherwise no lesions of concern. This was a BIRADS 2. She does not feel any lumps masses or nodules of concern in either br east. She underwent a right breast lumpectomy in May 2007 followed by radiation therapy. Her surgery and radiation treatment were performed at [facility] at that time. She did not have any chemotherapy. She did take some post treatment hormone therapy. Secondary to the surgery she has asymmetry of the breast. There is concern the difference in the size of her breast is exacerbating this. Caffiene: 2 cups/day nicotine: none chocolate: occasional Family History: maternal aunt: breast cancer maternal cousin: breast cancer Hormonal History: menarche: 10 , breast fed: no, age at first : 19 menopause: 40's Surgical History: Bilateral knee replacement Bilateral hip replacement Right lumpectomy 2 neck fractures appy gallbladder foot surgery Medical History: urinary retention Social History: nicotine: none alcohol: none drugs: none - Constitutional Constitutional: Denies chills, Denies fever - EENT Comment: macular degeneration legally blind Eyes: bilateral blurred vision, denies pain Ears: deny: decreased hearing, tinnitus Ears, nose, mouth and throat: Denies headache, Denies sore throat - Breasts Breasts: bilateral: as per HPI - Cardiovascular Comment: A-fib Cardiovascular: Reports shortness of breath, Denies chest pain - Respiratory Respiratory: Denies cough - Gastrointestinal Comment: IBS Gastrointestinal: Denies abdominal pain, Denies diarrhea, Denies nausea, Denies vomiting - Genitourinary (Female) Genitourinary: Denies dysuria, Denies hematuria - Menstruation Menstruation: Reports postmenopausal - Musculoskeletal Musculoskeletal: Reports myalgias - Integumentary Integumentary: Reports pruritus, Denies rash - Neurological Neurological: Denies numbness, Denies weakness - Psychiatric Psychiatric: Denies anxiety, Denies depression - Endocrine Endocrine: Reports weight change, Denies fatigue - Hematologic/Lymphatic Comment: none - Allergic/Immunologic Allergic/Immunologic: Reports seasonal allergies Past Medical History Past Medical History: Atrial Fibrillation, Cancer, GERD/Reflux, Hyperlipidemia, Hypertension, Osteoarthritis (OA), Thyroid Disorder Additional Past Medical History / Comment(s): HX OF RT BREAST CANCER WITH RADIATION 2008., BACK AND HIP PAIN. History of Any Multi-Drug Resistant Organisms: MRSA Date of last positivie culture/infection: 1997 MDRO Source:: RT BUNIONECTOMY Past Surgical History: Back Surgery, Cholecystectomy, Joint Replacement Additional Past Surgical History / Comment(s): 2003 CERVICAL FUSION, LT CARPAL TUNNEL, RT HIP REPLACEMENT, KEN KNEE REPLACEMENT, KEN BUNIONECTOMY, 2007 RT BREAST LUMPECTOMY. Past Anesthesia/Blood Transfusion Reactions: No Reported Reaction Past Psychological History: No Psychological Hx Reported Additional Past Alcohol Use History / Comment(s): No illicit drug use. No alcohol abuse. Patient lives at home with her . Patieant worked in custodial setting. - Past Family History Mother Family Medical History: Hyperlipidemia, Hypertension, Myocardial Infarction ([place]) Additional Family Medical History / Comment(s): Mother at age 59 from a myocardial infarction. Patient had history of 2 previous MIs. Father Additional Family Medical History / Comment(s): Father at age 76 from a ruptured aortic aneurysm. Sister(s) Additional Family Medical History / Comment(s): Patient has one sister with atrial fibrillation. Children have no major medical problems. Medications and Allergies Home Medications Medication Instructions Recorded Confirmed Type Pravastatin Sodium [Pravachol] 40 mg PO HS 09/18/14 11/03/18 History Levothyroxine Sodium [Synthroid] 137 mcg PO HS 11/03/18 09/05/22 History Acetaminophen [Tylenol Extra 500 mg PO DIRECTED PRN 09/05/22 09/05/22 History Strength] Felodipine [Felodipine ER] 2.5 mg PO DAILY 09/05/22 09/05/22 History Irbesartan 300 mg PO DAILY 09/05/22 09/05/22 History traMADol HCL 50 mg PO TID PRN 09/05/22 09/05/22 History Allergies Allergy/AdvReac Type Severity Reaction Status Date / Time meperidine HCl [From Demerol] AdvReac Unknown Blood Verified 09/05/22 11:04 pressure dropped Objective - Constitutional General appearance: Present: cooperative - EENT Eyes: Present: EOMI ENT: Present: hearing grossly normal - Neck Neck: Present: normal ROM - Respiratory Respiratory: bilateral: CTA - Cardiovascular Rhythm: regular Heart sounds: normal: S1, S2 - Gastrointestinal General gastrointestinal: Present: soft - Integumentary Integumentary: Present: normal turgor - Musculoskeletal Musculoskeletal Comment(s): uses a cane, kyphosis - Psychiatric Psychiatric: Present: A&O x's 3, appropriate affect, intact judgment & insight - Additional findings Additional findings: Breast Exam: BRA: 44D inspection: Right breast smaller than left breast related to lumpectomy and radiation treatment, bilateral grade 3 ptosis Palpation: Right breast: Postsurgical and radiation changes, no dominant masses or nodules of concern Right axilla: No adenopathy of concern Left breast: Multi-positional exam no dominant masses or nodules of concern Left axilla: No adenopathy of concern Assessment and Plan Assessment: Impression: Bilateral knee replacement Bilateral hip replacement Right lumpectomy 2 neck fractures appy gallbladder foot surgery She is status post right breast lumpectomy and radiation therapy 2007 no evidence of recurrent cancer Recent bilateral mammogram BIRADS 2 Plan: After discussing treatment options of close surveillance versus reduction mammoplasty on the left versus bilateral mastectomy the patient and her would like her to undergo bilateral mastectomy. Plan is for bilateral mastectomy. The patient is not interested in reconstruction. clearance Dr. Nader Kaba clearance cardiology Risks and benefits of the procedure discussed with the patient and her . Risks include but are not limited to bleeding, infection, reaction to the a nesthetic. They understand this and wish to proceed. Additionally because the right breast has been radiated there may be increased difficulty with tissue healing they understand and wish to proceed. Cc: Dr. Santana
== END ==
LOC: WWCWWP 15:40
PROVIDERS: ATTEND Surgery
DX: C50.911 Malignant neoplasm of unspecified site of right female breast (principal); E78.5 Hyperlipidemia, unspecified; I10 Essential (primary) hypertension; I48.91 Unspecified atrial fibrillation; K21.9 Gastro-esophageal reflux disease without esophagitis; M19.90 Unspecified osteoarthritis, unspecified site; M54.2 Cervicalgia; N64.89 Other specified disorders of breast; Z80.3 Family history of malignant neoplasm of breast; Z82.49 Family history of ischemic heart disease and other diseases of the circulatory system; Z83.49 Family history of other endocrine, nutritional and metabolic diseases; Z88.5 Allergy status to narcotic agent; Z90.49 Acquired absence of other specified parts of digestive tract; Z92.3 Personal history of irradiation; Z96.641 Presence of right artificial hip joint; Z96.643 Presence of artificial hip joint, bilateral; Z96.653 Presence of artificial knee joint, bilateral; Z88.8 Allergy status to other drugs, medicaments and biological substances

== ENCOUNTER → 2023-07-10 | Outpatient (CLI) | payer MEDICARE ==
--- NOTE | 2023-07-15 10:59 | MM ---
Reason for Exam: Screening (asymptomatic). Last screening mammogram was performed 12 month(s) ago. Patient History: Menarche at age 10. First Full-Term at age 19. Postmenopausal. Breast cancer, age 61. Previous chest radiation therapy at age 61. 05/25/2007, Lumpectomy on the Right side. 04/28/2007, Malignant Core Biopsy on the right side. 2007, Radiation Therapy on the right side. Maternal cousin had breast cancer, age 30. Maternal aunt had breast cancer, age 50. Prior Study Comparison: 07/07/2019 Bilateral Diagnostic Mammogram, [facility]. 05/03/2021 Bilateral Diagnostic Mammogram, [facility]. 06/20/2022 Bilateral MG 3D screening mammo w/cad, [facility]. Tissue Density: The breast tissue is almost entirely fat. Findings: Analyzed By CAD. There is no suspicious group of microcalcifications or new suspicious mass. Benign-appearing calcifications bilaterally. Overall Assessment: Benign, BI-RAD 2 Management: Screening Mammogram of both breasts in [address] [facility] will attempt to contact patient to return for supplemental views and ultrasound if indicated. Patient should continue monthly self-breast exams. A clinical breast exam by your physician is recommended on an annual basis. This exam should not preclude additional follow-up of suspicious palpable abnormalities. Note on Gracie scores and lifetime risk: 1. A Gracie score greater than 3% is considered moderate risk. If this is the case, consider specialist referral to assess eligibility for a risk reducing agent. 2. If overall lifetime risk for the development of breast cancer is 20% or higher, the patient may qualify for future screening with alternating mammogram and breast MRI. Electronically signed and approved by: Caesar Lyle DO
== END | disposition home or self-care (01) ==
LOC: RADMAMWWP 15:29
PROVIDERS: ATTEND Family Medicine
DX: Z12.31 Encounter for screening mammogram for malignant neoplasm of breast (principal); Z80.3 Family history of malignant neoplasm of breast; Z85.3 Personal history of malignant neoplasm of breast; Z78.0 Asymptomatic menopausal state
CPT/HCPCS: 77063; 77067

== ENCOUNTER 2023-11-19 12:58 | Day surgery (SDC) | payer MEDICARE ==
[2023-11-18 12:00] VITALS: BMI 32.4
[2023-11-19] MEDS: SODIUM CHLORIDE 0.9% 500 ML 500 ML IV ONE (13:30)
[2023-11-19] MEDS: VANCOMYCIN 1,250 MG in SODIUM CHLORIDE 0.9% 250 ML IVPB ONE (14:57)
[2023-11-19] MEDS ORDERED: diphenhydrAMINE 50 MG/ML 1 ML VIAL ONE (15:08)
[2023-11-19] MEDS ORDERED: MIDAZOLAM 2 MG/2 ML VIAL ONE (15:08)
[2023-11-19] MEDS ORDERED: KETAMINE HCL IN 0.9 % NACL 50 MG/5 ML SYRINGE ONE (15:08)
[2023-11-19] MEDS ORDERED: fentaNYL (PF) 50 MCG/ML 2 ML AMP ONE (15:08)
[2023-11-19] MEDS: IOPAMIDOL-370 100ML BTL INJ ONE (15:31)
[2023-11-19] MEDS ORDERED: LIDOCAINE 1% INJ 10MG/ML (20 ML MDV) ONE (15:41)
[2023-11-19] MEDS: LIDOCAINE 1% INJ 10MG/ML (20 ML MDV) SQ ONE ×2 (16:09→16:18)
[2023-11-19] MEDS: LACTATED RINGERS 1,000 ML IV ONE (16:52)
[2023-11-19] MEDS ORDERED: ACETAMINOPHEN TAB 325 MG TAB PO PRN (17:13)
[2023-11-19] MEDS: ceFAZolin 1 GM in SODIUM CHLORIDE 0.9% IRRIG BTL 250 ML IRRIGATION PRN (17:17)
--- NOTE | 2023-11-19 17:27 | P.EPPROC ---
- EP Procedure Note Electrophysiology Procedure Note: Diagnosis Symptomatic bradycardia, unprovoked, no triggering factors, symptomatic Procedure Single-chamber pacemaker implantation with conduction system pacing (left bundle pacing) Left upper extremity venogram Details Patient was brought to the EP lab in a fasting state. Written informed consent was obtained prior to the procedure. Conscious sedation provided by PAINTER APPRENTICE. IV antibiotics administered. Local anesthesia administered. A 4 cm incision made in the pectoral area. Subfascial pocket made. Venous access obtained Venous sheath placed. Leads placed in the right heart. 2 sets of pacing cables were used; one for backup temporary pacing and the other for assessment of current of injury and signal analysis. A deflected sheath was prepped. A coronary sinus decapolar catheter was placed within this sheath. The catheter along with the sheath was then passed into the right heart, the catheter was prolapsed across the tricuspid valve, into the right ventricle and then further into the right ventricular outflow tract across the pulmonic valve into the pulmonary artery. This sheath was slid over this decapolar catheter into the RVOT. Thereafter the catheter last sheath assembly was withdrawn from the RVOT along the septum to the mid septal area. The sheath was appropriately to to map the right ventricular aspect of the septum. The decapolar catheter was withdrawn, the sheath flushed again and the screw-in pacing lead placed within the sheath. Further detailed unipolar pace-mapping of the septum was performed and once the appropriate based morphology was obtained on lead V1, the lead was screwed into the septum. The lead was screwed in 4-5 returns at a time while monitoring the current of injury, the pacing impedance changes and the paced QRS morphology. The stimulus to peak of V6 QRS was measured at each step. Once a QR or rSR pattern of paced QRS in lead V1 was obtained, a left bundle signal was sought. Impedance was measured and thresholds were measured. An impedance drop of 100-200 ohms but above 550 ohms was targeted along with an unchanged vector of the current of injury signal. The final positioning was based on the QRS morphology in lead V1 and a short stimulus to peak of the V6 QRS of less than 90 ms. The sheath was withdrawn, stability of the pacing lead deep in the septum was confirmed on PADILLA and GUILLE views and the sheath was slipped and an adequate heel was provided for the lead. Unipolar and bipolar electrogram morphology obtained Left bundle lead parameters: Pacing impedance 703 ohms, R waves 6.5 mV and pacing threshold 0.5 V at 0.4 ms Medtronic model #3830, 69 cm in length lead Parameters Stimulus-V6 peak equals 64 ms QRS morphology RS R prime in lead V1 Device supervisor pipe finishing: Medtronic [place] XT SR MRI Dual-chamber pacemaker device connected to the leads and placed in the subfascial pocket Patient tolerated the procedure well without acute complications Pacemaker programming VVI 60 bpm
--- NOTE | 2023-11-19 17:29 | P.PRLE ---
RE: Tete Leon Dear John Epstein underwent a successful single-chamber pacemaker implantation with left bundle pacing/conduction system pacing with excellent left bundle pacing paramet ers Her blood pressure is elevated and I will start metoprolol succinate [address] daily in [address] of clonidine patch She will continue irbesartan and amlodipine as before Thank you for entrusting me with the care of the patient Warm regards Sincerely Vinayak Lara
[2023-11-19] MEDS: ACETAMINOPHEN IV (For NPO) 1,000 MG in EMPTY BAG 1 BAG IVPB ONE (18:06)
[2023-11-19] MEDS: SODIUM CHLORIDE 0.9% 1,000 ML IV SCH (18:06)
[2023-11-19] MEDS: METOPROLOL SUCCINATE (ER) 100 MG TAB.ER.24H PO SCH (18:21)
[2023-11-19] MEDS: LOSARTAN 50 MG TAB PO SCH (20:22)
[2023-11-20 00:35] VITALS: RESP 16
[2023-11-20] MEDS: traMADol 50 MG TAB PO PRN (04:20)
--- NOTE | 2023-11-20 07:33 | XR ---
EXAMINATION TYPE: XR chest 2V DATE OF EXAM: 11/20/2023 COMPARISON: 11/03/2018 HISTORY: 77-year-old female lead placement check TECHNIQUE: Frontal and lateral views FINDINGS: Heart mildly enlarged. Mild hyperinflation. Left anterior chest wall pacemaker generator with right v entricular lead. No appreciable pneumothorax. Tortuous/ectatic thoracic aorta. No consolidation or pl eural effusion. [facility] throughout the thoracic spine. ACDF hardware. IMPRESSION: Cardiomegaly and COPD. Tortuous/ectatic thoracic aorta. DISH throughout the thoracic spine. No defini te acute process.
[2023-11-20 07:49] VITALS: BP 137/83; PULSE 52; TEMP 98.2
[2023-11-20] MEDS: amLODIPine 5 MG TAB PO SCH (09:54)
== END 2023-11-20 12:09 | disposition home or self-care (01) ==
LOC: CATHEP 12:58 → 6NMEDSUR 16:59 → CATHEP 11-20 12:09
PROVIDERS: ATTEND Internal Medicine Clinical Cardiac Electrophysiology
DX: I51.7 Cardiomegaly (principal); J44.9 Chronic obstructive pulmonary disease, unspecified; I48.19 Other persistent atrial fibrillation; I10 Essential (primary) hypertension; Z79.899 Other long term (current) drug therapy; Z79.01 Long term (current) use of anticoagulants
CPT/HCPCS: 33207; 71046; 99152; C1730; C1887; C1892; C1898; C1786; C1769; J3370; J0690; J2001; J0131; Q9967

== ENCOUNTER → 2024-04-15 | Outpatient (CLI) | payer MEDICARE ==
[2024-04-15 16:34] LABS: African American GFR (CKD) 40 (>60 ml/min/1.73 sqM); Blood Urea Nitrogen 41 mg/dL (7-17); Non-African American GFR(CKD) 34 (>60 ml/min/1.73 sqM)
--- NOTE | 2024-04-15 17:29 | CT ---
EXAMINATION TYPE: CT brain w con DATE OF EXAM: 04/15/2024 5:05 PM COMPARISON: None CLINICAL INDICATION: Female, 78 years old with history of R41.0 DISORIENTATION R41.3 AMNESIA R44.3 LÓPEZ LLUCINA; Memory loss, hallucinations. TECHNIQUE: Axial CT images were obtained with coronal and sagittal reformats created and reviewed. Contrast used:80ml mL of Isovue 300 with IV Contrast, Oral contrast used: none. CT DLP: 1098.8 mGycm, Automated exposure control for dose reduction was used. FINDINGS: Extra-axial spaces: No abnormal extra-axial fluid collections. Ventricular system: Within normal limits Cerebral parenchyma: Right parietal/posterior frontal lobe injury white matter changes with preservat ion of a majority of the mathis matter.. No acute intraparenchymal hemorrhage or mass effect. The mathis -white junction is well differentiated. No abnormal enhancement is seen after the administration of i ntravenous contrast. Cerebellum: Unremarkable. Mass effect: No evidence of midline shift. Intracranial vasculature: Atherosclerosis of the arterial vasculature. No evidence for aneurysmal dil ation high-grade stenosis. Soft tissues: Normal. Calvarium/osseous structures: No depressed skull fracture. Paranasal sinuses and mastoid air cells: Clear. Visualized orbits: Bilateral aphakia IMPRESSION: 1. Right-sided white matter changes in the posterior frontal lobe/parietal lobe with preservation of the mathis-white matter junction. Findings may represent remote injury correlate with history. Consider MRI evaluation. 2. Nonspecific white matter changes, likely secondary to chronic small vessel ischemic disease. [facility], , 04/15/2024 5:26 PM
== END | disposition home or self-care (01) ==
LOC: RADCTMAIN 15:39
PROVIDERS: ATTEND Family Medicine
DX: I67.2 Cerebral atherosclerosis (principal); R41.0 Disorientation, unspecified; R41.3 Other amnesia; R44.3 Hallucinations, unspecified; G93.89 Other specified disorders of brain; H27.03 Aphakia, bilateral
CPT/HCPCS: 82565; 84520; 70460; 36415; Q9967

== ENCOUNTER → 2024-09-26 | Outpatient (CLI) | payer MEDICARE ==
--- NOTE | 2024-09-26 15:14 | MM ---
Reason for Exam: Hx of breast cancer, conservation therapy. Last mammogram was performed 1 year(s) and 3 month(s) ago. Patient History: Menarche at age 10. First Full-Term at age 19. Postmenopausal. Breast cancer, age 61. Previous chest radiation therapy at age 61. 05/25/2007, Lumpectomy on the Right side. 04/28/2007, Malignant Core Biopsy on the right side. 2007, Radiation Therapy on the right side. Maternal cousin had breast cancer, age 30. Maternal aunt had breast cancer, age 50. Prior Study Comparison: 05/03/2021 Bilateral Diagnostic Mammogram, [facility]. 06/20/2022 Bilateral MG 3D screening mammo w/cad, [facility]. 07/10/2023 Bilateral MG 3D screening mammo w/cad, [facility]. Tissue Density: There are scattered areas of fibroglandular density. Findings: Analyzed By CAD. Asymmetric diminished size of the right breast is redemonstrated. Benign-appearing vascular calcifications bilaterally is again seen. Benign-appearing linear calcifications in left breast redemonstrated. Benign-appearing dystrophic calcifications in right breast redemonstrated. Asymmetric skin thickening right breast again seen. Suboptimal positioning on current study. Patient in wheelchair and limited mobility. There is no suspicious new group of microcalcifications or new suspicious mass in either breast. Overall Assessment: Benign, BI-RAD 2 Management: Screening Mammogram of both breasts in 1 year. . Patient should continue monthly self-breast exams. A clinical breast exam by your physician is recommended on an annual basis. This exam should not preclude additional follow-up of suspicious palpable abnormalities. Note on Gracie scores and lifetime risk: 1. A Gracie score greater than 3% is considered moderate risk. If this is the case, consider specialist referral to assess eligibility for a risk reducing agent. 2. If overall lifetime risk for the development of breast cancer is 20% or higher, the patient may qualify for future screening with alternating mammogram and breast MRI. [facility], , 09/26/2024 3:12 PM. Electronically signed and approved by: Justice Escoto M.D.
== END | disposition home or self-care (01) ==
LOC: RADMAMWWP 14:13
PROVIDERS: ATTEND Family Medicine
DX: Z12.31 Encounter for screening mammogram for malignant neoplasm of breast (principal); R92.323 Mammographic fibroglandular density, bilateral breasts; Z78.0 Asymptomatic menopausal state; Z85.3 Personal history of malignant neoplasm of breast; Z80.3 Family history of malignant neoplasm of breast
CPT/HCPCS: 77063; 77067